=== PATIENT | female | born 1940 | race Caucasian/White ===

== ENCOUNTER → 2019-06-04 | Outpatient (REF) | payer OTHER ==
[~2019-06-04] MED LIST: ACET-897 PO; ACET20%4ML INH; ANTI2TAB17 PO; BACITAB PO; DOXY-350 PO; EASY-106 XX; FERR1TAB8 PO; FERR325T3 PO; FURO40TA2 PO; HYDR-3910 PO; K-TA10TA2 PO; LOSA50TA88 PO; MULT1TAB8 PO; NEBUKIT5 XX; OFEV1CAP PO; OMEP-218 PO; OMEP20CA4 PO; PLAV1TAB2 PO; POTA10CA32 PO; POTA20TA6 PO; PRAV40TA2 PO; PRED20TA PO; SYNT50TA PO; TRAM50TA2 PO; VITA1CAP25 PO; VITACHTA PO
[2019-06-04 18:54] LABS: BASO % 0.1 % (0.0-1.0); EOS # 0.3 10^3/uL (0.0-0.50); EOS % 2.9 % (0.0-3.0); HEMATOCRIT 36.3 % (36.0-47.0); HEMOGLOBIN 11.6 g/dl (12.0-15.5); LYMPH # 0.9 10^3/uL (1.5-4.5); LYMPH % 8.8 % (24.0-44.0); MEAN CORPUSCULAR HEMOGLOBIN 30.7 pg (27.0-33.0); MONO # 0.8 10^3/uL (0.0-0.8); MONO % 7.7 % (0.0-5.0); NEUTROPHILS # 8.2 10^3/uL (1.8-7.7); NEUTROPHILS % 80.1 % (36.0-66.0); PLATELET COUNT, AUTOMATED 190 10^3/uL (150-450); RED BLOOD COUNT 3.78 10^6/uL (4.00-5.40); WHITE BLOOD COUNT 10.3 10^3/uL (4.0-10.0)
[2019-06-04 19:13] LABS: ALBUMIN 2.8 GM/DL (3.2-5.2); BILIRUBIN,TOTAL 0.4 MG/DL (0.2-1.0); CALCIUM LEVEL 8.3 MG/DL (8.8-10.2); CREATININE FOR GFR 1.3 MG/DL (0.55-1.30); POTASSIUM SERUM 4.1 MEQ/L (3.5-5.1); TOTAL PROTEIN 6.3 GM/DL (6.4-8.2)
== END ==
LOC: M LAB REF 17:17
PROVIDERS: ATTEND Internal Medicine Pulmonary Disease
DX: J84.112 Idiopathic pulmonary fibrosis (principal); Z79.899 Other long term (current) drug therapy

== ENCOUNTER 2019-06-06 00:11 | Emergency (ER) | payer OTHER ==
[~2019-06-06] VITALS: Ht 157.5 cm; Wt 64.5 kg
[~2019-06-06 00:11] MED LIST changes: -K-TA10TA2 PO
[2019-06-06] MEDS ORDERED: K-TA10TA2 PO (00:44)
[2019-06-06] MEDS ORDERED: FUROSEMIDE 100 MG/10 ML VIAL (J1940) IV ONE (01:00)
[2019-06-06] MEDS ORDERED: dexameTHASONE 20 MG/5 ML VIAL (J1100) IV ONE (01:00)
[2019-06-06 01:02] LABS: BASO % 0.1 % (0.0-1.0); EOS # 0.1 10^3/uL (0.0-0.50); EOS % 0.7 % (0.0-3.0); HEMATOCRIT 30.7 % (36.0-47.0); HEMOGLOBIN 9.9 g/dl (12.0-15.5); LYMPH # 0.9 10^3/uL (1.5-4.5); LYMPH % 8.2 % (24.0-44.0); MEAN CORPUSCULAR HGB CONC 32.2 g/dl (32.0-36.5); MEAN CORPUSCULAR VOLUME 96.2 fl (80.0-96.0); MONO # 0.8 10^3/uL (0.0-0.8); MONO % 7.2 % (0.0-5.0); NEUTROPHILS # 9.3 10^3/uL (1.8-7.7); NEUTROPHILS % 83.4 % (36.0-66.0); PLATELET COUNT, AUTOMATED 162 10^3/uL (150-450); RED BLOOD COUNT 3.19 10^6/uL (4.00-5.40); WHITE BLOOD COUNT 11.2 10^3/uL (4.0-10.0)
[2019-06-06 01:26] LABS: INR 1.07; PROTHROMBIN TIME 13.6 SECONDS (11.8-14.0)
[2019-06-06 01:27] LABS: CALCIUM LEVEL 8.1 MG/DL (8.8-10.2); CREATININE FOR GFR 1.24 MG/DL (0.55-1.30); GLOMERULAR FILTRATION RATE 44.3 (>32); MB/CK RELATIVE INDEX 4.35 (< OR =4); PARTIAL THROMBOPLASTIN TIME 33.6 SECONDS (25.0-38.4); POTASSIUM SERUM 3.7 MEQ/L (3.5-5.1); TROPONIN I 0.5 NG/ML (< 0.10)
[2019-06-06] MEDS ORDERED: CLOPIDOGREL 75 MG TAB PO STA (01:30)
[2019-06-06] MEDS ORDERED: ASPIRIN 325 MG TAB PO ONE (01:30)
[2019-06-06] MEDS ORDERED: ISOVUE-370 76% 100ML VIAL (Q9967) As Ordered ONE (01:37)
--- NOTE | 2019-06-06 01:56 | REPVR ---
EXAM: US Duplex Left Lower Extremity Veins, Limited EXAM DATE/TIME: 06/06/2019 1:32 AM CLINICAL HISTORY: 78 years old, female; Pain; Leg, upper and leg, lower; Left; Additional info: Pain/swell TECHNIQUE: Imaging protocol: Real-time Duplex ultrasound of the Left Lower Extremity with 2-D betts scale, color Doppler flow and spectral waveform analysis with image documentation. Limited exam focused on the left lower extremity veins. COMPARISON: US Duplex, Ext LOWER veins, bilat 05/06/2019 9:23 PM FINDINGS: Left deep veins: Unremarkable. The common femoral, femoral and popliteal veins are patent without thrombus. Normal compressibility, augmentation response and Doppler waveforms. Left superficial veins: Unremarkable. Saphenofemoral junction is patent without thrombus. Soft tissues: Unremarkable. IMPRESSION: No sonographic evidence of deep vein thrombosis. Electronically signed by: Carlitos Razo On 06/06/2019 01:55:41 AM
--- NOTE | 2019-06-06 02:00 | REPVR ---
EXAM: CT Angiography Chest With Contrast EXAM DATE/TIME: 06/06/2019 1:31 AM CLINICAL HISTORY: 78 years old, female; Dyspnea; Additional info: Dysp TECHNIQUE: Imaging protocol: Axial computed tomographic angiography images of the chest with intravenous contrast using CT angiography protocol. 3D rendering: MIP reconstructed images were created and reviewed. Radiation optimization: All CT scans at this facility use at least one of these dose optimization techniques: automated exposure control; mA and/or kV adjustment per patient size (includes targeted exams where dose is matched to clinical indication); or iterative reconstruction. Contrast material: ISO; Contrast volume: 75 ml; Contrast route: AC; COMPARISON: CT ANGIO CHEST 05/06/2019 10:07 PM FINDINGS: Pulmonary arteries: Dilatation of the main pulmonary artery segment, suggesting pulmonary hypertension. Aorta: Mild atherosclerotic disease. No aneurysm or dissection. Lungs: Extensive fibrotic changes with associated bronchiectasis. Superimposed groundglass infiltrates. No focal consolidation. Mild pulmonary vascular congestion. Pleural space: Small left pleural effusion. No pneumothorax. Heart: Mild cardiomegaly. No pericardial effusion. Mediastinum: Large hiatal hernia. Gallbladder and bile ducts: Status post cholecystectomy. No biliary ductal dilatation. Lymph nodes: No pathologically enlarged lymph nodes. Bones/joints: No acute osseous abnormality. Osteopenia. Degenerative changes. Soft tissues: Unremarkable. IMPRESSION: 1. No CT evidence of pulmonary embolism. 2. Cardiomegaly and mild pulmonary vascular congestion. 3. Dilatation of the main pulmonary artery segment, suggesting pulmonary hypertension. 4. Extensive fibrotic changes with associated bronchiectasis with new superimposed nonspecific groundglass infiltrates. Findings may be secondary to edema or nonspecific pneumonitis. Infection cannot be excluded. 5. Small left pleural effusion. 6. Large hiatal hernia. 7. Additional findings, as above. Electronically signed by: Carlitos Razo On 06/06/2019 02:00:19 AM
[2019-06-06] MEDS ORDERED: HEPARIN DRIP 25,000 UNITS in APPROPRIATE DILUENT 1 EA IV SCH (02:45)
[2019-06-06] MEDS ORDERED: HEPARIN SOD (PORCINE) 5000 UNITS/ML VIAL IV ONE (02:45)
[2019-06-06 03:29] VITALS: BP 132/63
--- NOTE | 2019-06-06 05:37 | ECGEPIP ---
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
== END 2019-06-06 03:31 | disposition short-term general hospital (02) ==
LOC: M ED 00:11
DX: I21.4 Non-ST elevation (NSTEMI) myocardial infarction (principal); E78.5 Hyperlipidemia, unspecified; K21.9 Gastro-esophageal reflux disease without esophagitis; D50.9 Iron deficiency anemia, unspecified; I51.9 Heart disease, unspecified; J84.10 Pulmonary fibrosis, unspecified; I51.7 Cardiomegaly; J44.9 Chronic obstructive pulmonary disease, unspecified; Z79.82 Long term (current) use of aspirin; Z79.84 Long term (current) use of oral hypoglycemic drugs; Z79.899 Other long term (current) drug therapy; Z88.0 Allergy status to penicillin; Z88.2 Allergy status to sulfonamides
CPT/HCPCS: 71275; 80048; 82550; 82553; 83605; 83880; 84484; 85025; 85610; 85730; 87040; 93005; 93971; 96374; 99285; J1100; J1940; Q9967

== ENCOUNTER 2019-06-26 17:45 | Inpatient (IN) | payer OTHER ==
[~2019-06-26] VITALS: Ht 157.5 cm; Wt 61.2 kg
[~2019-06-26 17:45] MED LIST changes: +K-TA10TA2 PO
[2019-06-26] MEDS ORDERED: LOPE2CAP PO (18:37)
[2019-06-26] MEDS ORDERED: FLON1SPR NARES (18:37)
[2019-06-26] MEDS ORDERED: ASPI81TA85 PO (18:37)
[2019-06-26 18:38] LABS: BASO % 0.2 % (0.0-1.0); EOS # 0.2 10^3/uL (0.0-0.5); HEMATOCRIT 39.8 % (36.0-47.0); HEMOGLOBIN 12.9 g/dl (12.0-15.5); LYMPH # 1.3 10^3/uL (1.5-5.0); LYMPH % 11.5 % (24.0-44.0); MEAN CORPUSCULAR HEMOGLOBIN 31.5 pg (27.0-33.0); MEAN CORPUSCULAR HGB CONC 32.4 g/dl (32.0-36.5); MEAN CORPUSCULAR VOLUME 97.1 fl (80.0-96.0); MONO # 0.8 10^3/uL (0.0-0.8); MONO % 7.3 % (0.0-5.0); NEUTROPHILS # 8.8 10^3/uL (1.5-8.5); PLATELET COUNT, AUTOMATED 173 10^3/uL (150-450); WHITE BLOOD COUNT 11.3 10^3/uL (4.0-10.0)
[2019-06-26 18:39] LABS: VENOUS BASE EXCESS 12.1 (-2.0-2.0); VENOUS O2 SATURATION 94.1 % (60.0-80.0); VENOUS PARTIAL PRESSURE O2 67.3 mmHg (30.0-50.0); VENOUS PH 7.465 UNITS (7.330-7.430); VENOUS STANDARD HCO3 35.8 MEQ/L; VENOUS TOTAL CO2 39.6 MEQ/L (24.0-28.0)
[2019-06-26 18:46] LABS: INR 0.98; PROTHROMBIN TIME 12.7 SECONDS (11.8-14.0)
[2019-06-26] MEDS ORDERED: ASPIRIN 81 MG CHEW TABLET PO ONE (19:15)
[2019-06-26] MEDS ORDERED: IPRATROPIUM 0.5MG/ALBUTEROL 2.5MG INH SOL UD 3ML (DUONEB)(J7620) NEB PRN (19:15)
[2019-06-26 19:20] LABS: ALBUMIN 2.8 GM/DL (3.2-5.2); ALT/SGPT 23 U/L (12-78); BILIRUBIN,DIRECT 0.2 MG/DL (0.0-0.2); BILIRUBIN,TOTAL 0.6 MG/DL (0.2-1.0); BLOOD UREA NITROGEN 21 MG/DL (7-18); CALCIUM LEVEL 8.8 MG/DL (8.8-10.2); CARBON DIOXIDE LEVEL 37 MEQ/L (21-32); CHLORIDE LEVEL 95 MEQ/L (98-107); CK-MB VALUE MASS 3.6 NG/ML (<3.6); CPK CREATINE PHOSPHOKINASE 39 U/L (26-192); CREATININE FOR GFR 0.85 MG/DL (0.55-1.30); GLOMERULAR FILTRATION RATE > 60.0 (>32); GLUCOSE, FASTING 170 MG/DL (70-100); MB/CK RELATIVE INDEX 9.23 (< OR =4); NT-PRO BNP 1148 PG/ML (<450); POTASSIUM SERUM 3.4 MEQ/L (3.5-5.1); SODIUM LEVEL 141 MEQ/L (136-145); TOTAL PROTEIN 6.4 GM/DL (6.4-8.2)
--- NOTE | 2019-06-26 19:26 | REP ---
Portable chest x-ray: Single view. History: Dyspnea and cough. Comparison study: May 08, 2019. Findings: There is evidence of a large hiatal hernia behind the heart. The heart is not enlarged. Chronic interstitial fibrosis is seen, moderate to marked in degree. Today's view is exposed at a lower level of inspiration. Allowing for this difference, the interstitial fibrosis pattern is felt to be unchanged from May 06, 2019 and May 08, 2019 prior studies. No definite acute infiltrate. Impression: Large hiatal hernia. Advanced interstitial fibrosis pattern in the lung plascencia. Clips in the right upper quadrant. No definite acute infiltrate. Electronically Signed by Irving Monte MD 06/26/2019 07:29 P
[2019-06-26] MEDS ORDERED: FUROSEMIDE 20 MG/2 ML VIAL (J1940) IV ONE (20:00)
[2019-06-26] MEDS: HumaLOG INSULIN (NovoLOG) PER UNIT SC SCH (21:00)
[2019-06-26] MEDS ORDERED: POTA20TA6 PO (21:45)
[2019-06-26] MEDS ORDERED: [UNRECOGNIZED DRUG - CODE] IH (21:45)
--- NOTE | 2019-06-26 21:49 | HPEPDOC ---
General Date of Admission Jun 26, 2019 at 17:46 Date of Service: Jun 26, 2019 Chief Complaint The patient is a 78-year-old female admitted with a reason for visit of Chf/Hypoxia/Pulmonary Fibrosis. Source: Patient, Family Exam Limitations: No limitations Timing/Duration: Day(s) (2) Severity: Mild History of Present Illness Pt is a 78 yo female with PMH of CKD, idopathic pulm fibrosis, CAD, and OA who presented to [facility] ER due to 2 days of dyspnea, increased orthopnea, increased b/l leg edema, and bilateral LE leg pain. He pulse ox decreased fro m98% to 78% during walking, and dyspnea worsens with walking. Also reported increasing dry- cough. She reported she has been having decreased urination as well; denies any diet/fluid intake change. Pt had echo 04/2019 which showed diastolic dysfunction grade 1. It was noted that from 06/06 to 06/11 pt was hospitalized in [place] for dyspnea and was later discharged home with steroid pack taper. She usually follows pulm at [facility], and per report when he called today, the nursing staff told him the pt needed to be on oxygen 3-8L. Pt has been requiring gradually increasing oxygen, and since 06/06/19 she has been requiring 4.5L. Denies any fever, chills, chest pain, palpitation, abd pain, constipation, diarrhea, or blood in stool Home Medications Scheduled Acetylcysteine (Acetylcysteine) 200 Mg/1 Ml Vial, 400 MG IH RBID, (Reported) MIX WITH VIAL OF ALBUTEROL Albuterol Sulf (Albuterol Sulfate) 2.5 Mg/3 Ml Vial.neb, 1 VIAL INH BID, (Reported) TO BE MIXED WITH ACETYLCYSTEINE Aspirin (Aspir 81) 81 Mg Tablet.dr, 81 MG PO DAILY, (Reported) Ferrous Sulfate (Ferrous Sulfate) 325 Mg Tablet, 325 MG PO 2XWK, (Reported) SUNDAY AND SUNDAY Fluticasone Propionate (Flonase Allergy Relief) 9.9 Ml Ideal.susp, 2 SPRAY NARES DAILY, (Reported) Furosemide (Furosemide) 40 Mg Tablet, 40 MG PO DAILY, (Reported) Hydralazine HCl (Hydralazine HCl) 25 Mg Tablet, 25 MG PO BID, (Reported) Levothyroxine Sodium (Synthroid) 50 Mcg Tablet, 50 MCG PO DAILY, (Reported) Nintedanib Esylate (Ofev) 100 Mg Capsule, 100 MG PO BID, (Reported) SECOND DOSE AT DINNERTIME Omeprazole (Omeprazole) 20 Mg Capsule.dr, 20 MG PO DAILY, (Reported) Potassium Chloride (Potassium Chloride) 20 Meq Tab.er.prt, 20 MEQ PO TID, (Reported) Pravastatin Sodium (Pravastatin Sodium) 40 Mg Tablet, 40 MG PO QHS, (Reported) Scheduled PRN Acetaminophen (Tylenol Extra Strength) 500 Mg Tablet, 1,000 MG PO Q8H PRN for PAIN, (Reported) Loperamide HCl (Loperamide) 2 Mg Capsule, 4 MG PO Q6H PRN for DIARRHEA, (Reported) Allergies Coded Allergies: Penicillins (Verified Allergy, Severe, PASSED OUT/CONVULSIONS, 05/06/19) Sulfa (Sulfonamide Antibiotics) (Verified Allergy, Intermediate, HIVES, 05/06/19) Past Medical History Medical History HTN CAD Hyperlipidemia Idiopathic pulmonary fibrosis CKD Right knee replacement Htsterectomy OA Hyperthyroidism Family History Mother-RA No family hx of interstitial lung dz Social History * Smoker: former Smoker A-FIB/CHADSVASC A-FIB History Current/History of A-Fib/PAF?: No Review of Systems Constitutional: Reports: Weakness; Denies: Chills, Fever Pulmonary: Reports: Dyspnea, Cough Cardiovascular: Reports: Orthopnea, Paroxysmal Noc. Dyspnea, Edema; Denies: Chest Pain, Palpitations Gastrointestinal: Denies: Nausea, Vomiting, Abdominal Pain, Diarrhea, Constipa tion, Hematochezia Musculoskeletal: Reports: Other Symptoms (B/l hip pain reported to be due to excessive outpt PT) Physical Examination General Exam: Positive: Alert, Cooperative, No Acute Distress Eye Exam: Positive: Conjunctiva & lids normal; Negative: Sclera icteric ENT Exam: Positive: Mucous membr. moist/pink Neck Exam: Positive: Supple Chest Exam: Positive: Clear to auscultation, Normal air movement; Negative: Rales, Rhonchi, Wheezing Heart Exam: Positive: Rate Normal, Regular Rhythm, Normal S1, Normal S2; Negative: Murmurs Abdomen Exam: Positive: Normal bowel sounds, Soft; Negative: Tenderness Extremity Exam: Positive: Edema (B/l pitting edema), Normal pulses, Tenderness (b/l LE) Psych Exam: Positive: Mental status NL, Mood NL, Memory Intact, Oriented x 3; Negative: Anxiety Vital Signs Vital Signs Date Time Temp Pulse Resp B/P (MAP) Pulse Ox O2 Delivery O2 Flow Rate FiO2 06/26/19 20:45 97 20 149/85 (106) 99 Nasal Cannula 6.0 06/26/19 19:40 97.8 Laboratory Data Labs 24H Laboratory Tests 2 06/26/19 18:16: Immature Granulocyte % (Auto) 1.0, White Blood Count 11.3H, Red Blood Count 4.10, Hemoglobin 12.9, Hematocrit 39.8, Mean Corpuscular Volume 97.1H, Mean Corpuscular Hemoglobin 31.5, Mean Corpuscular Hemoglobin Concent 32.4, Red Cell Distribution Width 14.4, Platelet Count 173, Neutrophils (%) (Auto) 78.0H, Lymphocytes (%) (Auto) 11.5L, Monocytes (%) (Auto) 7.3H, Eosinophils (%) (Auto) 2.0, Basophils (%) (Auto) 0.2, Neutrophils # (Auto) 8.8H, Lymphocytes # (Auto) 1.3L, Monocytes # (Auto) 0.8, Eosinophils # (Auto) 0.2, Basophils # (Auto) 0.0, Nucleated Red Blood Cells % (auto) 0.0, Prothrombin Time 12.7, Prothromb Time International Ratio 0.98, Blood Gas Bicarbonate Standard 35.8, Venous Blood pH 7.465H, Venous Blood Partial Pressure CO2 54.0H, Venous Blood Partial Pressure O2 67.3H, Venous Blood Total Carbon Dioxide 39.6H, Venous Blood HCO3 38.0H, Venous Blood Oxygen Saturation 94.1H, Venous Blood Base Excess 12.1H, Anion Gap 9, Glomerular Filtration Rate > 60.0, Lactic Acid Level 1.3, Calcium Level 8.8, Aspartate Amino Transf (AST/SGOT) 27, Alanine Aminotransferase (ALT/SGPT) 23, Alkaline Phosphatase 66, Total Bilirubin 0.6, Direct Bilirubin 0.2, Total Creatine Kinase 39, Creatine Kinase MB 3.6, Creatine Kinase MB Relative Index 9.23H, Troponin I 0.10, KQ-Jfj-K-Type Natriuretic Peptide 1148H, Total Protein 6.4, Albumin 2.8L, Albumin/Globulin Ratio 0.78L, Thyroid Stimulating Hormone (TSH) 1.990 CBC/BMP Laboratory Tests 06/26/19 18:16 Red Blood Count 4.10, Mean Corpuscular Volume 97.1 H, Mean Corpuscular Hemoglobin 31.5, Mean Corpuscular Hemoglobin Concent 32.4, Red Cell Distribution Width 14.4, Neutrophils (%) (Auto) 78.0 H, Lymphocytes (%) (Auto) 11.5 L, Monocytes (%) (Auto) 7.3 H, Eosinophils (%) (Auto) 2.0, Basophils (%) (Auto) 0.2, Neutrophils # (Auto) 8.8 H, Lymphocytes # (Auto) 1.3 L, Monocytes # (Auto) 0.8, Eosinophils # (Auto) 0.2, Basophils # (Auto) 0.0 Microbiology Microbiology 06/26/19 Blood Culture, Received Pending Assessment/Plan 1. CHF exacerbation, with grade 1 diastolic dysfunction -Hold home Lasix dose; start Lasix IV 40mg as scheduled -I&O, daily weights -No added Na diet 2. Idiopathic pulm fibrosis -Cont home med Ofev and INH NAC -CXR showed fibrosis pattern 3. HTN -Cont home med; pt also will have lasix added. Hydralazine IV PRN with holding parameters -BP 149/85 most recent in ER -vital signs as scheduled 4. CAD -Cont home med statin 5. Hyperlipidemia -Cont home med statin 6. CKD -no KIMBERLY -Cont to f/u with BMP 7. Hyperglycemia, without DM hx -likely 2/2 recent use of po steroid -start insulin sliding scale with POC AC&HS 8. Hypothyroidism -PMH of hyperthyroidism listed however pt on synthroid at home -cont home synthroid 9. Hypokalemia -K 3.4; 40 meq repleted Recheck BMP tmrw morning, Mg level Diet: No added Na diet DVT prophylaxis: SCD, TEDS, and heparin IAttila, have independently examined this patient and performed my own physical exam, as well as reviewed the documentation and edited where necessary. I have discussed in detail with the resident / student the findings and plan of treatment as documented by the resident / student and edited their note. I agree with their findings and treatment plan and have edited their documentation. I will continue to follow the patient during this hospital stay. Plan / VTE VTE Prophylaxis Ordered?: Yes JEANCARLOS MARRERO DO Jun 26, 2019 21:49 ATTILA HEBERT DO Jun 26, 2019 22:50
[2019-06-26] MEDS ORDERED: ALBU83IN INH (21:52)
[2019-06-26] MEDS ORDERED: hydrALAZINE INJ 20 MG/ML VIAL IV PRN (22:00)
[2019-06-26 22:40] VITALS: BP 137/79
[2019-06-26] MEDS ORDERED: DEXTROSE 50% 50 ML SYRINGE IV PRN (23:00)
[2019-06-26] MEDS ORDERED: GLUCOSE 4 GM CHEW TABLET PO PRN (23:00)
[2019-06-26] MEDS ORDERED: GLUCAGON FOR INJ 1 MG VIAL (J1610) SC PRN (23:00)
[2019-06-27] VITALS (7 sets, daily range): BP systolic 124–137; BP diastolic 74–89; O2SAT 92–98
[2019-06-27] MEDS: FUROSEMIDE 40 MG/4 ML VIAL (J1940) IV SCH ×4 (00:30→17:59)
[2019-06-27] MEDS: POTASSIUM CHLORIDE 10 MEQ SR TABLET PO SCH ×4 (00:31→22:18)
[2019-06-27] MEDS: HEPARIN SOD (PORCINE) 5000 UNITS/ML VIAL SC SCH ×3 (00:31→22:18)
[2019-06-27] MEDS: NINTEDANIB ESYLATE 100 MG PO SCH ×3 (02:18→18:18)
[2019-06-27] MEDS: LEVOTHYROXINE 50MCG TABLET (0.05MG) PO SCH (05:37)
[2019-06-27 06:34] LABS: HEMATOCRIT 39.7 % (36.0-47.0); HEMOGLOBIN 12.6 g/dl (12.0-15.5); MEAN CORPUSCULAR HGB CONC 31.7 g/dl (32.0-36.5); MEAN CORPUSCULAR VOLUME 94.5 fl (80.0-96.0); PLATELET COUNT, AUTOMATED 177 10^3/uL (150-450); WHITE BLOOD COUNT 13.3 10^3/uL (4.0-10.0)
[2019-06-27 06:47] LABS: BLOOD UREA NITROGEN 18 MG/DL (7-18); CALCIUM LEVEL 8.9 MG/DL (8.8-10.2); CARBON DIOXIDE LEVEL 39 MEQ/L (21-32); CHLORIDE LEVEL 95 MEQ/L (98-107); CREATININE FOR GFR 0.79 MG/DL (0.55-1.30); GLOMERULAR FILTRATION RATE > 60.0 (>32); GLUCOSE, FASTING 142 MG/DL (70-100); MAGNESIUM LEVEL 1.7 MG/DL (1.8-2.4); POTASSIUM SERUM 2.9 MEQ/L (3.5-5.1); SODIUM LEVEL 140 MEQ/L (136-145)
[2019-06-27] MEDS ORDERED: POTASSIUM CHLORIDE 10 MEQ SR TABLET PO ONE ×2 (07:00→12:45)
[2019-06-27] MEDS: ASPIRIN 81 MG ENTERIC TAB PO SCH (07:54)
[2019-06-27] MEDS: FLUTICASONE PROP 0.05% NASAL SPRAY 16 GM (FLONASE) NARES SCH (07:55)
[2019-06-27] MEDS: **hydrALAZINE HCL** 25 MG TAB PO SCH ×2 (07:57→22:19)
[2019-06-27] MEDS: OMEPRAZOLE 20 MG CAP PO SCH (07:57)
[2019-06-27] MEDS: HumaLOG INSULIN (NovoLOG) PER UNIT SC SCH ×4 (07:58→21:00)
[2019-06-27] MEDS: ACETYLCYSTEINE 20% 4 ML VIAL (200MG/ML) INH SCH ×2 (08:00→20:21)
[2019-06-27] MEDS: ALBUTEROL SULFATE 2.5 MG/0.5 ML INH NEB SOLN NEB SCH ×2 (08:05→20:21)
[2019-06-27] MEDS ORDERED: POTASSIUM CHLORIDE 10 MEQ SR TABLET PO SCH (09:00)
[2019-06-27] MEDS: MAGNESIUM OXIDE 400 MG TAB (MAG-OX) PO SCH (13:27)
--- NOTE | 2019-06-27 15:52 | IPNPDOC ---
Text Note Date of Service The patient was seen on 06/27/19. NOTE SUBJECTIVE: Ms. Madsen is comfortable in a chair at bedside. She states she is uncomfortable with any exertion. Patient is admitted with acute on chronic hypoxic respiratory failure. Patient has underlying idiopathic pulmonary fibrosis. OBJECTIVE: HENT: Neck is supple, no adenopathy or thyromegaly, moist oral mucosa, mild facial pallor. Cardiovascular: Irregular rhythm, no appreciable murmur. Pulmonary: Patient has greatly diminished air movement Abdomen: Soft, nontender, nondistended. Extremities: No peripheral edema or lesions, pedal pulses are palpable, legs are elevated in chair, however. ASSESSMENT/PLAN: 1. Acute respiratory failure with hypoxia due to idiopathic pulmonary fibrosis. Patient was admitted requiring a nonrebreather mask and desaturations down into the 60s. Apparently she had been off of her oxygen for a period of time. The patient has been diagnosed with this for just over 4 years. She is usually followed at [facility]. Generally she requires anywhere from 5 - 8 LPM. Remains on her current steroids and nebulization treatments. 2. Chronic diastolic congestive heart failure. I do not appreciate clinical signs of acute fluid overload at this time She does not have peripheral edema and does not have remarkable interstitial infiltrate on her chest x-ray. We'll de-escalate her diuresis regimen. 3. Disposition. The patient resides in [place]. Patient came to this area by motor home. She is unclear that it will be able to sufficiently power her oxygen equipment to provide her with 8 L/m should she need it. She will also need to run air-conditioning concurrently. She has multiple pertinent questions. If she brings O2 tanks she is unclear of how many she is allowed to have in the motor home. 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 She is also wondering if [employer] would be available as a transport alternative. We can discuss all of this with discharge planning. The patient is aware that her disease is progressive and worsening. She had been given a prognosis of 5 years from the time of diagnosis. She has not yet made any decisions regarding CODE STATUS. VS,Fishbone, I+O VS, Fishbone, I+O Laboratory Tests 06/26/19 18:16 Red Blood Count 4.10, Mean Corpuscular Volume 97.1 H, Mean Corpuscular Hemoglobin 31.5, Mean Corpuscular Hemoglobin Concent 32.4, Red Cell Distribution Width 14.4, Neutrophils (%) (Auto) 78.0 H, Lymphocytes (%) (Auto) 11.5 L, Monocytes (%) (Auto) 7.3 H, Eosinophils (%) (Auto) 2.0, Basophils (%) (Auto) 0.2, Neutrophils # (Auto) 8.8 H, Lymphocytes # (Auto) 1.3 L, Monocytes # (Auto) 0.8, Eosinophils # (Auto) 0.2, Basophils # (Auto) 0.0 06/27/19 05:32 Red Blood Count 4.20, Mean Corpuscular Volume 94.5, Mean Corpuscular Hemoglobin 30.0, Mean Corpuscular Hemoglobin Concent 31.7 L, Red Cell Distribution Width 14.6 H, Calcium Level 8.9 Vital Signs Date Time Temp Pulse Resp B/P (MAP) Pulse Ox O2 Delivery O2 Flow Rate FiO2 06/27/19 07:57 126/74 06/27/19 06:05 92 Nasal Cannula 4.0 06/27/19 06:00 99.0 94 24 I&O- Last 24 Hours up to 6 AM 06/27/19 06:00 Intake Total 300 ml Output Total 425 ml Balance -125 ml THOR HEARN MD Jun 27, 2019 15:51
[2019-06-27] MEDS: PRAVASTATIN 20 MG TAB PO SCH (22:18)
--- NOTE | 2019-06-28 05:41 | ECGEPIP ---
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
[2019-06-28 06:00] VITALS: BP 119/77
[2019-06-28] MEDS: LEVOTHYROXINE 50MCG TABLET (0.05MG) PO SCH (06:08)
[2019-06-28 06:29] LABS: HEMATOCRIT 38.4 % (36.0-47.0); HEMOGLOBIN 12.1 g/dl (12.0-15.5); MEAN CORPUSCULAR HEMOGLOBIN 30.8 pg (27.0-33.0); MEAN CORPUSCULAR HGB CONC 31.5 g/dl (32.0-36.5); MEAN CORPUSCULAR VOLUME 97.7 fl (80.0-96.0); PLATELET COUNT, AUTOMATED 170 10^3/uL (150-450); RED BLOOD COUNT 3.93 10^6/uL (4.00-5.40); WHITE BLOOD COUNT 10.9 10^3/uL (4.0-10.0)
[2019-06-28 06:51] LABS: CREATININE FOR GFR 0.99 MG/DL (0.55-1.30); GLOMERULAR FILTRATION RATE 57.5 (>32); MAGNESIUM LEVEL 1.8 MG/DL (1.8-2.4); POTASSIUM SERUM 4.3 MEQ/L (3.5-5.1)
[2019-06-28] MEDS: ALBUTEROL SULFATE 2.5 MG/0.5 ML INH NEB SOLN NEB SCH ×2 (08:01→19:36)
[2019-06-28] MEDS: ACETYLCYSTEINE 20% 4 ML VIAL (200MG/ML) INH SCH ×2 (08:01→19:36)
[2019-06-28 09:00] VITALS: O2SAT 99
[2019-06-28] MEDS: HEPARIN SOD (PORCINE) 5000 UNITS/ML VIAL SC SCH ×2 (09:35→20:54)
[2019-06-28] MEDS: FLUTICASONE PROP 0.05% NASAL SPRAY 16 GM (FLONASE) NARES SCH (09:35)
[2019-06-28] MEDS: FUROSEMIDE 40 MG/4 ML VIAL (J1940) IV SCH ×2 (09:35→16:43)
[2019-06-28] MEDS: HumaLOG INSULIN (NovoLOG) PER UNIT SC SCH ×4 (09:35→20:45)
[2019-06-28] MEDS: OMEPRAZOLE 20 MG CAP PO SCH (09:36)
[2019-06-28] MEDS: ASPIRIN 81 MG ENTERIC TAB PO SCH (09:36)
[2019-06-28] MEDS: MAGNESIUM OXIDE 400 MG TAB (MAG-OX) PO SCH (09:36)
[2019-06-28] MEDS: **hydrALAZINE HCL** 25 MG TAB PO SCH ×2 (09:36→20:53)
[2019-06-28] MEDS: POTASSIUM CHLORIDE 10 MEQ SR TABLET PO SCH ×3 (09:36→20:52)
[2019-06-28] MEDS: NINTEDANIB ESYLATE 100 MG PO SCH ×2 (09:37→16:45)
[2019-06-28 14:00] VITALS: BP 128/76
--- NOTE | 2019-06-28 15:44 | IPNPDOC ---
Text Note Date of Service The patient was seen on 06/28/19. NOTE SUBJECTIVE: Ms. Madsen remains comfortable in a chair at bedside. She was admitted with acute on chronic hypoxic respiratory failure due to idiopathic pulmonary fibrosis. The patient appears to have contracted an upper respiratory infection that has exacerbated her condition. She is currently making use of 4-5 LPM. OBJECTIVE: HENT: Neck is supple, no adenopathy or thyromegaly, moist oral mucosa, mild facial pallor. Cardiovascular: Irregular rhythm, no appreciable murmur. Pulmonary: Patient has greatly diminished air movement, but is not in visible distress. Abdomen: Soft, nontender, nondistended. Extremities: No peripheral edema or lesions, pedal pulses are palpable, legs are elevated in chair, however. 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 Acute respiratory failure with hypoxia due to idiopathic pulmonary fibrosis. Patient was admitted requiring a nonrebreather mask and desaturations down into the 60s. Apparently she had been off of her oxygen for a period of time. The patient has been diagnosed with this for just over 4 years. She is usually followed at [facility]. Generally she requires anywhere from 5 - 8 LPM. Remains on her current nebulization treatments. 2. Chronic diastolic congestive heart failure. I do not appreciate clinical signs of acute fluid overload at this time She does not have peripheral edema and does not have remarkable interstitial infiltrate on her chest x-ray. We'll continue to monitor her closely however. 3. Overall, the patient appears to be at baseline. We will need to discuss how she is to get home. She resides in [place] and travels by motor home. The patient is aware that her disease is progressive and worsening. She apparently has been reviewing the MOLST form. We have reviewed it together in detail and she has made herself DNR/DNI. VS,Heathere, I+O VS, Heathere, I+O Laboratory Tests 06/28/19 05:24 Red Blood Count 3.93 L, Mean Corpuscular Volume 97.7 H, Mean Corpuscular Hemoglobin 30.8, Mean Corpuscular Hemoglobin Concent 31.5 L, Red Cell Distribution Width 14.6 H, Calcium Level 9.0 Vital Signs Date Time Temp Pulse Resp B/P (MAP) Pulse Ox O2 Delivery O2 Flow Rate FiO2 06/28/19 14:00 97.4 104 23 128/76 (93) 98 4.0 06/28/19 09:00 Nasal Cannula I&O- Last 24 Hours up to 6 AM 06/28/19 05:59 Intake Total 850 ml Output Total 726 ml Balance 124 ml THOR HEARN MD Jun 28, 2019 15:43
[2019-06-28 20:37] VITALS: O2SAT 99
[2019-06-28] MEDS: PRAVASTATIN 20 MG TAB PO SCH (20:53)
[2019-06-28 22:00] VITALS: BP 131/76
[2019-06-29] MEDS: LEVOTHYROXINE 50MCG TABLET (0.05MG) PO SCH (05:48)
[2019-06-29 05:53] LABS: HEMATOCRIT 36.9 % (36.0-47.0); HEMOGLOBIN 11.7 g/dl (12.0-15.5); MEAN CORPUSCULAR HGB CONC 31.7 g/dl (32.0-36.5); MEAN CORPUSCULAR VOLUME 97.6 fl (80.0-96.0); PLATELET COUNT, AUTOMATED 170 10^3/uL (150-450); RED BLOOD COUNT 3.78 10^6/uL (4.00-5.40); WHITE BLOOD COUNT 10.4 10^3/uL (4.0-10.0)
[2019-06-29 06:00] VITALS: BP 131/73
[2019-06-29 06:15] LABS: CALCIUM LEVEL 8.8 MG/DL (8.8-10.2); CREATININE FOR GFR 1.01 MG/DL (0.55-1.30); GLOMERULAR FILTRATION RATE 56.1 (>32); POTASSIUM SERUM 4.3 MEQ/L (3.5-5.1)
[2019-06-29] MEDS: ALBUTEROL SULFATE 2.5 MG/0.5 ML INH NEB SOLN NEB SCH ×2 (07:16→19:40)
[2019-06-29] MEDS: ACETYLCYSTEINE 20% 4 ML VIAL (200MG/ML) INH SCH ×2 (07:16→19:40)
[2019-06-29] MEDS: HEPARIN SOD (PORCINE) 5000 UNITS/ML VIAL SC SCH ×2 (08:15→21:47)
[2019-06-29] MEDS: FUROSEMIDE 40 MG/4 ML VIAL (J1940) IV SCH ×2 (08:15→16:42)
[2019-06-29] MEDS: MAGNESIUM OXIDE 400 MG TAB (MAG-OX) PO SCH (08:15)
[2019-06-29] MEDS: OMEPRAZOLE 20 MG CAP PO SCH (08:15)
[2019-06-29] MEDS: POTASSIUM CHLORIDE 10 MEQ SR TABLET PO SCH ×3 (08:15→21:46)
[2019-06-29] MEDS: ASPIRIN 81 MG ENTERIC TAB PO SCH (08:15)
[2019-06-29] MEDS: **hydrALAZINE HCL** 25 MG TAB PO SCH ×2 (08:16→21:46)
[2019-06-29] MEDS: HumaLOG INSULIN (NovoLOG) PER UNIT SC SCH ×4 (08:17→21:00)
[2019-06-29] MEDS: FLUTICASONE PROP 0.05% NASAL SPRAY 16 GM (FLONASE) NARES SCH (08:17)
[2019-06-29] MEDS: NINTEDANIB ESYLATE 100 MG PO SCH ×2 (08:18→16:47)
[2019-06-29 09:00] VITALS: O2SAT 92
[2019-06-29 14:00] VITALS: BP 138/76
--- NOTE | 2019-06-29 17:04 | IPNPDOC ---
Text Note Date of Service The patient was seen on 06/29/19. NOTE SUBJECTIVE: The patient had one of her "spells" where she desats acutely with activity. Her O2 sats got down to 74%. She recovered with FiO2 turned up to 7 LPM. By history she has required up to 8 LPM. The patient has idiopathic pulmonary fibrosis. She attributes her event overexerting herself yesterday; she was apparently out of bed for about 6 hours. OBJECTIVE: General: She is sitting up in bed back on 4.5 LPM. HENT: Neck is supple, no adenopathy or thyromegaly, moist oral mucosa, mild facial pallor. Cardiovascular: Irregular rhythm, no appreciable murmur. Pulmonary: Patient has greatly diminished air movement, but is not in visible distress. Abdomen: Soft, nontender, nondistended. Extremities: No peripheral edema or lesions, pedal pulses are palpable ASSESSMENT/PLAN: 1. Acute respiratory failure with hypoxia due to idiopathic pulmonary fibrosis. Patient continues on nebulization treatments. She has had an episode of desaturation; she has remained within her O2 range of 5-8 LPM. 2. Chronic diastolic congestive heart failure. The patient does not have remarkable peripheral edema. She does not exhibit pulmonary rales on exam. We will continue to monitor. We will need to review. Daily weights. 3. Patient feels she is at baseline as well. However, with these episodes. Concern is raised about how she is to get home. We will discuss this with isrrael cat planning. VS,Fishbone, I+O VS, Fishbone, I+O Laboratory Tests 06/29/19 05:14 Red Blood Count 3.78 L, Mean Corpuscular Volume 97.6 H, Mean Corpuscular Hemoglobin 31.0, Mean Corpuscular Hemoglobin Concent 31.7 L, Red Cell Distribution Width 14.8 H, Calcium Level 8.8 Vital Signs Date Time Temp Pulse Resp B/P (MAP) Pulse Ox O2 Delivery O2 Flow Rate FiO2 06/29/19 14:00 97.7 99 17 138/76 (96) 98 06/29/19 09:00 Nasal Cannula 4.5 I&O- Last 24 Hours up to 6 AM 06/29/19 06:00 Intake Total 990 ml Output Total 1140 ml Balance -150 ml THOR HEARN MD Jun 29, 2019 17:04
[2019-06-29 21:43] VITALS: BP 137/76
[2019-06-29] MEDS: PRAVASTATIN 20 MG TAB PO SCH (21:46)
[2019-06-29] MEDS: ACETAMINOPHEN 500 MG TAB PO PRN (21:47)
[2019-06-29 22:00] VITALS: O2SAT 98
[2019-06-30 06:00] VITALS: BP 134/75
[2019-06-30] MEDS: LEVOTHYROXINE 50MCG TABLET (0.05MG) PO SCH (06:23)
[2019-06-30] MEDS: ACETYLCYSTEINE 20% 4 ML VIAL (200MG/ML) INH SCH ×2 (07:25→20:35)
[2019-06-30] MEDS: ALBUTEROL SULFATE 2.5 MG/0.5 ML INH NEB SOLN NEB SCH ×2 (07:25→20:35)
[2019-06-30] MEDS: HumaLOG INSULIN (NovoLOG) PER UNIT SC SCH ×4 (08:48→20:10)
[2019-06-30] MEDS: MAGNESIUM OXIDE 400 MG TAB (MAG-OX) PO SCH (08:49)
[2019-06-30] MEDS: OMEPRAZOLE 20 MG CAP PO SCH (08:49)
[2019-06-30] MEDS: HEPARIN SOD (PORCINE) 5000 UNITS/ML VIAL SC SCH ×2 (08:49→21:28)
[2019-06-30] MEDS: NINTEDANIB ESYLATE 100 MG PO SCH ×2 (08:50→17:43)
[2019-06-30] MEDS: ASPIRIN 81 MG ENTERIC TAB PO SCH (08:50)
[2019-06-30] MEDS: POTASSIUM CHLORIDE 10 MEQ SR TABLET PO SCH ×3 (08:50→21:29)
[2019-06-30] MEDS: FUROSEMIDE 40 MG/4 ML VIAL (J1940) IV SCH ×2 (08:50→17:42)
[2019-06-30] MEDS: **hydrALAZINE HCL** 25 MG TAB PO SCH ×2 (08:51→21:30)
[2019-06-30] MEDS: FLUTICASONE PROP 0.05% NASAL SPRAY 16 GM (FLONASE) NARES SCH (08:51)
[2019-06-30] MEDS: ACETAMINOPHEN 500 MG TAB PO PRN (09:02)
[2019-06-30] MEDS: LOPERAMIDE 2 MG CAP PO PRN ×2 (09:08→17:43)
[2019-06-30 14:00] VITALS: BP 131/64
[2019-06-30 14:13] VITALS: O2SAT 100
--- NOTE | 2019-06-30 20:42 | IPNPDOC ---
Text Note Date of Service The patient was seen on 06/30/19. NOTE SUBJECTIVE: Ms. Madsen is still not tolerating much physical activity. Her FiO2 has been weaned back down to 4.5 LPM. The patient has idiopathic pulmonary fibrosis. Her usual O2 range is 5-8 LPM. OBJECTIVE: General: She is sitting up in bed back on 4.5 LPM. HENT: Neck is supple, no adenopathy or thyromegaly, moist oral mucosa, mild facial pallor. Cardiovascular: Irregular rhythm, no appreciable murmur. Pulmonary: Patient has greatly diminished air movement, but is not in visible distress. Abdomen: Soft, nontender, nondistended. Extremities: No peripheral edema or lesions, pedal pulses are palpable ASSESSMENT/PLAN: 1. Acute respiratory failure with hypoxia due to idiopathic pulmonary fibrosis. Patient continues on nebulization treatments. She has had an episode of desaturation; she has remained within her O2 range of 5-8 LPM. 2. Chronic diastolic congestive heart failure. The patient does not have remarkable peripheral edema. She does not exhibit pulmonary rales on exam. We will continue to monitor. 3. Patient feels she is at baseline as well. However, with these episodes concern was raised about how she is to get home. The patient has been evaluated by physical therapy services and she is adequately mobile to be able to get into her RV. Consequently, she could be discharged in the next 24-48 hours. Ultimately she plans to go home to [place] when the weather there is cooler. VS,Fishbone, I+O VS, Fishbone, I+O Vital Signs Date Time Temp Pulse Resp B/P (MAP) Pulse Ox O2 Delivery O2 Flow Rate FiO2 06/30/19 18:38 97 4.0 06/30/19 14:13 Nasal Cannula 06/30/19 14:00 99.4 85 18 131/64 (86) I&O- Last 24 Hours up to 6 AM 06/30/19 06:00 Intake Total 780 ml Output Total 300 ml Balance 480 ml THOR HEARN MD Jun 30, 2019 20:42
[2019-06-30] MEDS: PRAVASTATIN 20 MG TAB PO SCH (21:28)
[2019-06-30 21:31] VITALS: BP 137/84
[2019-06-30 22:00] VITALS: BP 131/81
[2019-07-01] VITALS (7 sets, daily range): BP systolic 124–128; BP diastolic 70–82; O2SAT 96–100
[2019-07-01] MEDS: LEVOTHYROXINE 50MCG TABLET (0.05MG) PO SCH (06:38)
[2019-07-01] MEDS: ACETYLCYSTEINE 20% 4 ML VIAL (200MG/ML) INH SCH (07:13)
[2019-07-01] MEDS: ALBUTEROL SULFATE 2.5 MG/0.5 ML INH NEB SOLN NEB SCH (07:14)
[2019-07-01] MEDS: HumaLOG INSULIN (NovoLOG) PER UNIT SC SCH ×2 (08:10→13:15)
[2019-07-01] MEDS: ASPIRIN 81 MG ENTERIC TAB PO SCH (10:09)
[2019-07-01] MEDS: POTASSIUM CHLORIDE 10 MEQ SR TABLET PO SCH (10:10)
[2019-07-01] MEDS: MAGNESIUM OXIDE 400 MG TAB (MAG-OX) PO SCH (10:11)
[2019-07-01] MEDS: OMEPRAZOLE 20 MG CAP PO SCH (10:11)
[2019-07-01] MEDS: **hydrALAZINE HCL** 25 MG TAB PO SCH (10:11)
[2019-07-01] MEDS: FUROSEMIDE 40 MG/4 ML VIAL (J1940) IV SCH (10:13)
[2019-07-01] MEDS: HEPARIN SOD (PORCINE) 5000 UNITS/ML VIAL SC SCH (10:14)
[2019-07-01] MEDS: FLUTICASONE PROP 0.05% NASAL SPRAY 16 GM (FLONASE) NARES SCH (10:15)
[2019-07-01] MEDS: NINTEDANIB ESYLATE 100 MG PO SCH (10:15)
--- NOTE | 2019-07-01 10:22 | IPNPDOC ---
Subjective Date Seen The patient was seen on 07/01/19. Subjective Chief Complaint/HPI Breathing at baseline, not dyspenic at rest or with conversation. Feels weak. No CP, orthopnea, fever, nor chills Events since last encounter none Eyes: Reports: Pain, Vision change; Denies: Conjunctivae inflammation, Eyelid inflammation, Redness, Other Pulmonary: Reports: Dyspnea (at baseline); Denies: Cough, Pleuritic Chest Pain, Other Symptoms Cardiovascular: Denies: Chest Pain, Palpitations, Orthopnea, Paroxysmal Noc. Dyspnea, Edema, Lt Headedness, Other Symptoms Gastrointestinal: Denies: Nausea, Vomiting, Abdominal Pain, Diarrhea, Constipation, Melena, Hematochezia, Other Symptoms Neurological: Denies: Weakness, Numbness, Incoordination, Change in speech, Confusion, Seizures, Other Symptoms Objective Physical Examination General Exam: Positive: Alert, Cooperative, No Acute Distress Eye Exam: Positive: Conjunctiva & lids normal; Negative: Sclera icteric ENT Exam: Positive: Mucous membr. moist/pink Neck Exam: Positive: Supple Chest Exam: Positive: Normal air movement, Other (bilateral dry rales); Negative: Rales, Rhonchi, Wheezing Heart Exam: Positive: Rate Normal, Regular Rhythm, Normal S1, Normal S2; Negative: Murmurs Abdomen Exam: Positive: Normal bowel sounds, Soft; Negative: Tenderness Extremity Exam: Positive: Edema (B/l pitting edema), Normal pulses, Tenderness (b/l LE) Skin Exam: Negative: Nl turgor and temperature, Rash, Breakdown, Lesion, Pruritus, Other skin issue Psych Exam: Positive: Mental status NL, Mood NL, Memory Intact, Oriented x 3; Negative: Anxiety Assessment /Plan Assessment 1. Acute respiratory failure with hypoxia due to chronic idiopathic pulmonary fibrosis with superimposed rhinovirus URI. - clinically improved - medically stable for discharge, home today - resume OFEV, continue home oxygen 5-8 LPM - F/u with PCP in 1 week 2. Chronic diastolic congestive heart failure. - no need for IV lasix, she does not have acute diastolic CHG 3. CKD stage 3 - creat at baseline 4. Diet- controlled DM type 2 - continue with BG check daily at home - f/u with PCP if BG > 180 gm/dl consistently 5. Dispo: Home today with resumption of home oxygen Plan/VTE VTE Prophylaxis Ordered?: Yes VS, I&O, 24H, [place]obonprimo Vital Signs/I&O Vital Signs Date Time Temp Pulse Resp B/P (MAP) Pulse Ox O2 Delivery O2 Flow Rate FiO2 07/01/19 07:39 97.7 86 20 124/70 (88) 95 4.0 07/01/19 01:13 Nasal Cannula I&O- Last 24 Hours up to 6 AM 07/01/19 06:00 Intake Total 1460 ml Output Total 600 ml Balance 860 ml Laboratory Data 24H LABS Laboratory Tests 2 06/30/19 11:24: Bedside Glucose (Misc Panel) 245H 06/30/19 16:42: Bedside Glucose (Misc Panel) 77L 06/30/19 19:55: Bedside Glucose (Misc Panel) 207H 07/01/19 06:03: Bedside Glucose (Misc Panel) 137H Microbiology Microbiology 06/27/19 Blood Culture - Preliminary, Resulted No Growth after 72 hours. All specime... 06/26/19 Blood Culture - Preliminary, Resulted No Growth after 72 hours. All specime... 06/27/19 Respiratory Virus Panel (PCR) ([facility]) - Final, Complete Human Rhinovirus/Enterovirus JENNIFER GOMEZ MD Jul 01, 2019 10:22
[2019-07-01] MEDS ORDERED: FLUBLOK(EGG FREE)(QUAD)INFLUENZA VACC 0.5ML SYRINGE (90682)18YRS&OLDER IM ONE (12:00)
--- NOTE | 2019-07-02 19:14 | DSES ---
DATE OF ADMISSION: 06/27/2019 DATE OF DISCHARGE: 07/01/2019 Primary care provider is not listed. DISCHARGE DIAGNOSES: 1. Acute on chronic hypoxic respiratory failure secondary to upper respiratory viral infection with rhinovirus. 2. Chronic diastolic congestive heart failure with stage 1 diastolic dysfunction. 3. Hypertension. 4. Coronary artery disease. 5. Hyperlipidemia. 6. Chronic kidney disease stage III. 7. Diet-controlled diabetes mellitus type 2. PROCEDURE PERFORMED DURING THIS HOSPITALIZATION: None. CONSULTANTS ON THE CASE: None. DISPOSITION: The patient is discharged to home. CONDITION AT THE TIME OF DISCHARGE: Stable. DISCHARGE INSTRUCTIONS: The patient was instructed to followup with primary care provider of her choice in the next 1-2 weeks for post hospital followup. She is to resume her oxygen at discharge. IMAGING STUDIES OBTAINED DURING THIS HOSPITALIZATION: Chest x-ray one view. This demonstrated that the patient had a large hiatal hernia with no change in her advanced interstitial fibrosis pattern. PERTINENT LABS: White count is 10.4, hemoglobin 11.7, hematocrit 36.9, platelet count 170. PT was 12.7, INR was 0.98. ABG showed a pH of 7.46, a pCO2 of 54, a pO2 of 67, bicarbonate is 39.6, oxygen saturation of 94%. Sodium is 140, potassium 4.3, chloride 100, bicarbonate is 35, anion gap is 5, BUN is 25, creatinine is 1, lactic acid is 1.3, glucose 135, calcium is 8.8. Initial troponin marker was normal. NT-Pro-BNP was 1148, TSH was 1.99. AST and ALT were 27 and 23 respectively. Microbiology: Respiratory viral panel was positive for Rhinovirus. Blood cultures times two were no growth during this hospitalization. HOSPITAL COURSE: Ms. Amaya is an 78-year-old woman with known stage I diastolic congestive heart failure as well as interstitial pulmonary fibrosis with chronic respiratory failure. She is on home oxygen and had presented to the hospital with worsening shortness of breath with increasing need for oxygen. She was managed with a nonrebreather. She was quickly transitioned to nasal cannula. It was determined that likely the cause of her exacerbation was related to respiratory viral infection. Initially it was thought to be due to acute diastolic congestive heart failure. She was diuresed with IV Lasix, but this did not significantly improve her symptoms. Over the course of her hospital stay, she gradually improved to the point where she felt she was at her baseline. Patient was subsequently discharged home today in stable condition. Total of 29 minutes was spent including all discharge paperwork.
== END 2019-07-01 15:21 | disposition home health service (06) | DRG 196 ==
LOC: M ED 17:45 → M ED INP 17:46 → M MSPAV 22:42 → OBSVTOIN 06-27 15:20
PROVIDERS: ADMIT Internal Medicine; ATTEND Internal Medicine
DX: J84.112 Idiopathic pulmonary fibrosis (principal); J96.21 Acute and chronic respiratory failure with hypoxia; I50.33 Acute on chronic diastolic (congestive) heart failure; I13.0 Hypertensive heart and chronic kidney disease with heart failure and stage 1 through stage 4 chronic kidney disease, or unspecified chronic kidney disease; N18.3 Chronic kidney disease, stage 3 (moderate); I25.10 Atherosclerotic heart disease of native coronary artery without angina pectoris; E78.5 Hyperlipidemia, unspecified; M19.90 Unspecified osteoarthritis, unspecified site; Z79.899 Other long term (current) drug therapy; Z79.82 Long term (current) use of aspirin; Z88.0 Allergy status to penicillin; Z88.2 Allergy status to sulfonamides; Z96.651 Presence of right artificial knee joint; E11.65 Type 2 diabetes mellitus with hyperglycemia; E87.6 Hypokalemia; B97.89 Other viral agents as the cause of diseases classified elsewhere; B34.9 Viral infection, unspecified

== ENCOUNTER 2019-07-11 16:36 | Inpatient (IN) | payer OTHER ==
[~2019-07-11] VITALS: Ht 157.5 cm; Wt 56.4 kg
[~2019-07-11 16:36] MED LIST changes: +ALBU83IN INH; +ASPI81TA85 PO; +FLON1SPR NARES; +LOPE2CAP PO; +[UNRECOGNIZED DRUG - CODE] INH
[2019-07-11] MEDS ORDERED: LOSA50TA88 PO (17:06)
[2019-07-11] MEDS ORDERED: CO Q100C10 PO (17:06)
[2019-07-11] MEDS ORDERED: CLOP75TA2 PO (17:06)
[2019-07-11] MEDS ORDERED: NS 1,000 ML IV ONE (17:30)
[2019-07-11 17:37] LABS: BASO # 0.1 10^3/uL (0.0-0.2); BASO % 0.6 % (0.0-1.0); EOS # 0.4 10^3/uL (0.0-0.5); EOS % 2.6 % (0.0-3.0); HEMATOCRIT 41.2 % (36.0-47.0); LYMPH # 2.4 10^3/uL (1.5-5.0); LYMPH % 17.6 % (24.0-44.0); MEAN CORPUSCULAR HEMOGLOBIN 30.9 pg (27.0-33.0); MEAN CORPUSCULAR HGB CONC 31.6 g/dl (32.0-36.5); MEAN CORPUSCULAR VOLUME 97.9 fl (80.0-96.0); MONO # 1.1 10^3/uL (0.0-0.8); MONO % 8.4 % (0.0-5.0); NEUTROPHILS # 9.3 10^3/uL (1.5-8.5); NEUTROPHILS % 69.1 % (36.0-66.0); PLATELET COUNT, AUTOMATED 310 10^3/uL (150-450); RED BLOOD COUNT 4.21 10^6/uL (4.00-5.40); WHITE BLOOD COUNT 13.5 10^3/uL (4.0-10.0)
[2019-07-11] MEDS ORDERED: ALBUTEROL SULFATE 2.5 MG/0.5 ML INH NEB SOLN INH ONE (17:45)
[2019-07-11] MEDS ORDERED: IPRATROPIUM 0.5MG/ALBUTEROL 2.5MG INH SOL UD 3ML (DUONEB)(J7620) NEB ONE (17:45)
--- NOTE | 2019-07-11 17:58 | REP ---
AP PORTABLE CHEST: 07/11/2019. Comparison: 06/26/2019, 05/08/2019. Clinical history: Dyspnea and cough. Findings: The lungs are more hypoinflated on the current study than the previous two examinations. There is underlying diffuse interstitial lung changes. There is heavier markings in the left base adjacent to the left heart border that could be atelectasis or infiltrate. Extensive diffuse fibrotic changes with some peribronchial thickening noted. No gross effusion. Heart size unchanged. Aorta and airway unchanged. Impression: 1. Chronic diffuse interstitial fibrotic change moderate to moderately severe with a lower level of inflation but allowing for that there is still appearance of increased parenchymal density at the left heart border suggesting some subsegmental atelectasis or infiltrate developed since the previous study 06/26/2019.2. No gross cardiomegaly, pleural effusion or diallo edema. Electronically Signed by Shailesh Beltran MD 07/11/2019 08:24 P
[2019-07-11] MEDS ORDERED: LevoFLOXacin IV 750 MG in IV 1 EA IV ONE (18:30)
[2019-07-11] MEDS ORDERED: LORazepam 2 MG/ML VIAL (J2060) IV STA (18:33)
[2019-07-11 19:12] LABS: ALBUMIN 3.1 GM/DL (3.2-5.2); ALT/SGPT 23 U/L (12-78); BILIRUBIN,DIRECT 0.2 MG/DL (0.0-0.2); BILIRUBIN,TOTAL 0.5 MG/DL (0.2-1.0); BLOOD UREA NITROGEN 29 MG/DL (7-18); CARBON DIOXIDE LEVEL 29 MEQ/L (21-32); CHLORIDE LEVEL 101 MEQ/L (98-107); CK-MB VALUE MASS 6.4 NG/ML (<3.6); CPK CREATINE PHOSPHOKINASE 69 U/L (26-192); CREATININE FOR GFR 0.85 MG/DL (0.55-1.30); GLOMERULAR FILTRATION RATE > 60.0 (>32); GLUCOSE, FASTING 130 MG/DL (70-100); MB/CK RELATIVE INDEX 9.28 (< OR =4); POTASSIUM SERUM 3.9 MEQ/L (3.5-5.1); SODIUM LEVEL 140 MEQ/L (136-145); TOTAL PROTEIN 7.4 GM/DL (6.4-8.2); TROPONIN I < 0.02 NG/ML (< 0.10)
--- NOTE | 2019-07-11 19:48 | HPEPDOC ---
[facility] Medical History & Physical Date of Admission Jul 11, 2019 Date of Service: Jul 11, 2019 Primary Care Physician: SUNDAY HARDEN MD Attending Physician: BONNY FARFAN MD History and Physical TIME OF SERVICE: 9:05 PM CHIEF COMPLAINT: Shortness of breath HISTORY OF PRESENT ILLNESS: This is an 78-year-old female who presents with complaints of partially worsening dyspnea over the last 2-3 days. She complainS that she "can't get up can't do activities", and has been feeling nervous and anxious which makes her breathing worse. Because of the dyspnea she "can't get comfortable." Associated symptoms include mid constant chest pressure, dry cough, runny nose, and headache. She denies having fevers or chills. She is also complaining of having "a hard time swallowing"; she can't eat dry foods and has to soak her foods and liquids. As a result, she's lost some weight. REVIEW OF SYSTEMS: 12 point review of systems negative except as listed in HPI PAST MEDICAL/ SURGICAL HISTORY: UIP/IPF Pulmonary HTN Chronic hypertension/chronic grade 1 diastolic dysfunction Chronic CAD. Stage I or II CKD Hypothyroidism OA. Dyslipidemia. Status post right knee replacement Status post hysterectomy SOCIAL HISTORY: Former smoker FAMILY HISTORY: Rheumatoid arthritis ALLERGIES: Please see below. HOME MEDICATIONS: Please see below. PHYSICAL EXAMINATION: VITAL SIGNS: Please see below. GENERAL APPEARANCE: Slim built, well-developed, appears chronically ill HEENT: Normocephalic, atraumatic, nasal cannula, place, mucous membranes dry CARDIOVASCULAR: Tachycardic, radial pulses are bounding LUNGS: She is unable to complete full a sentence without having to stop to take of breath, and is using accessory muscles. She has crackles bilaterally, and is coughing occasionally. ABDOMEN: Scaphoid, bowel sounds are positive, the abdomen is soft and nontender on palpation MUSCULOSKELETAL: Extremities are Slim NEUROLOGICAL: Numerous 2-12 are grossly intact. Speech is not dysarthric PSYCHIATRIC: Alert and oriented, able to understand and follow commands LABORATORY DATA: See below. IMAGING: Chest x-ray "Impression: 1. Chronic diffuse interstitial fibrotic change moderate to moderately severe with a lower level of inflation but allowing for that there is still appearance of increased parenchymal density at the left heart border suggesting some subsegmental atelectasis or infiltrate developed since the previous study 06/26/2019. 2. No gross cardiomegaly, pleural effusion or diallo edema. MICROBIOLOGY: Please see below. ASSESSMENT: is 78 yr F w a PMH of IUP/IPF, pulmonary hypertension, chronic hypertension, chronic grade 1 diastolic discussion, chronic CAD, stage I/2 CKD, hypothyroidiMs, OA, and dyslipidemia will be admitted for management of dyspnea. PLAN: 1. Dyspnea Possibly due to left lower lobe pneumonia/pulmonary fibrosis exacerbation SIRS criteria include leukocytosis and a heart rate >95 Sepsis unlikely as lactic acid is 1.1 Chest x-ray showed a left-sided lesion that may represent atelectasis vs pneumonia Per discussion with RN taking care of her she is DNR/DNI and old MOLST form showed that she elected not to receive antibiotics Plan: Admit to PCU/ Pulm consult / f/u CT of the chest / Palliative Care Consult to determine if she is a candidate for pallative care alone or if she is ready for hospice/ supplemental O2 / continuos pulse oximetry / aspiration precautions / f/u sputum cx, blood cx / Dunebs Q6H, Albuterol Q4HP, Solumedrol now, start Prednisone + PPI tomorrow, continue with Levofloxacin pending revision of MOLST form, Tessalon Pearls, Acetaminophen PRN for fever 2.Dysphagia alarm symptom age >60 and weight loss Plan: PPI, soft diet pending swallow eval / f/u w Palliative care evaluation to address goals of care prior to consulting GI for EGD 3.Chronic hypertension/chronic grade 1 diastolic dysfunction Plan: Continue home meds 4.Chronic CAD. Plan: Continue home meds 5.Hypothyroidism Plan: Continue home meds 6.OA. Plan: Continue home meds DVT prophylaxis with Lovenox Disposition pending clinical course Vital Signs Vital Signs Date Time Temp Pulse Resp B/P (MAP) Pulse Ox O2 Delivery O2 Flow Rate FiO2 07/11/19 19:36 103 97 07/11/19 19:30 116/72 (87) 07/11/19 19:21 16 07/11/19 18:56 Nasal Cannula 3.0 07/11/19 18:06 98.0 Laboratory Data Labs 24H Laboratory Tests 2 07/11/19 17:17: Immature Granulocyte % (Auto) 1.7, White Blood Count 13.5H, Red Blood Count 4.21, Hemoglobin 13.0, Hematocrit 41.2, Mean Corpuscular Volume 97.9H, Mean Corpuscular Hemoglobin 30.9, Mean Corpuscular Hemoglobin Concent 31.6L, Red Cell Distribution Width 15.2H, Platelet Count 310, Neutrophils (%) (Auto) 69.1H, Lymphocytes (%) (Auto) 17.6L, Monocytes (%) (Auto) 8.4H, Eosinophils (%) (Auto) 2.6, Basophils (%) (Auto) 0.6, Neutrophils # (Auto) 9.3H, Lymphocytes # (Auto) 2.4, Monocytes # (Auto) 1.1H, Eosinophils # (Auto) 0.4, Basophils # (Auto) 0.1, Nucleated Red Blood Cells % (auto) 0.1H, Anion Gap 10, Glomerular Filtration Rate > 60.0, Calcium Level 9.0, Aspartate Amino Transf (AST/SGOT) 35, Alanine Aminotransferase (ALT/SGPT) 23, Alkaline Phosphatase 80, Total Bilirubin 0.5, Direct Bilirubin 0.2, Total Creatine Kinase 69, Creatine Kinase MB 6.4H, Creatine Kinase MB Relative Index 9.28H, Troponin I < 0.02, Total Protein 7.4, Albumin 3.1L, Albumin/Globulin Ratio 0.72L 07/11/19 17:27: Lactic Acid Level 1.1 CBC/BMP Laboratory Tests 07/11/19 17:17 Red Blood Count 4.21, Mean Corpuscular Volume 97.9 H, Mean Corpuscular Hemoglo bin 30.9, Mean Corpuscular Hemoglobin Concent 31.6 L, Red Cell Distribution Width 15.2 H, Neutrophils (%) (Auto) 69.1 H, Lymphocytes (%) (Auto) 17.6 L, Monocytes (%) (Auto) 8.4 H, Eosinophils (%) (Auto) 2.6, Basophils (%) (Auto) 0.6, Neutrophils # (Auto) 9.3 H, Lymphocytes # (Auto) 2.4, Monocytes # (Auto) 1.1 H, Eosinophils # (Auto) 0.4, Basophils # (Auto) 0.1 Microbiology Microbiology 07/11/19 Blood Culture, Received Pending Home Medications Scheduled Acetylcysteine (Acetylcysteine) 200 Mg/1 Ml Vial, 400 MG INH BID MIX WITH VIAL OF ALBUTEROL Albuterol Sulf (Albuterol Sulfate) 2.5 Mg/3 Ml Vial.neb, 1 VIAL INH BID TO BE MIXED WITH ACETYLCYSTEINE Aspirin (Aspir 81) 81 Mg Tablet.dr, 81 MG PO DAILY Clopidogrel Bisulfate (Clopidogrel) 75 Mg Tablet, 75 MG PO DAILY Ferrous Sulfate (Ferrous Sulfate) 325 Mg Tablet, 325 MG PO 2XWK SUNDAY AND SUNDAY Fluticasone Propionate (Flonase Allergy Relief) 9.9 Ml [place].susp, 2 SPRAY NARES DAILY Furosemide (Furosemide) 40 Mg Tablet, 40 MG PO DAILY Hydralazine HCl (Hydralazine HCl) 25 Mg Tablet, 25 MG PO BID Levothyroxine Sodium (Synthroid) 50 Mcg Tablet, 50 MCG PO DAILY Losartan Potassium (Losartan Potassium) 50 Mg Tablet, 50 MG PO DAILY Nintedanib Esylate (Ofev) 100 Mg Capsule, 100 MG PO BID SECOND DOSE AT DINNERTIME Omeprazole (Omeprazole) 20 Mg Capsule.dr, 20 MG PO DAILY Potassium Chloride (Potassium Chloride) 20 Meq Tab.er.prt, 20 MEQ PO TID Pravastatin Sodium (Pravastatin Sodium) 40 Mg Tablet, 40 MG PO QHS Ubidecarenone/Vit E Acet (Co Q-10 100 mg Softgel) 1 Each Capsule, 100 MG PO DAILY Scheduled PRN Acetaminophen (Tylenol Extra Strength) 500 Mg Tablet, 1,000 MG PO Q8H PRN for PAIN Loperamide HCl (Loperamide) 2 Mg Capsule, 4 MG PO Q6H PRN for DIARRHEA Allergies Coded Allergies: Penicillins (Verified Allergy, Severe, PASSED OUT/CONVULSIONS, 05/06/19) Sulfa (Sulfonamide Antibiotics) (Verified Allergy, Intermediate, HIVES, 05/06/19) A-FIB/CHADSVASC A-FIB History Current/History of A-Fib/PAF?: No Current PO Anticoag Therapy: No BONNY FARFAN MD Jul 11, 2019 19:48
[2019-07-11] MEDS: ACETYLCYSTEINE 20% 4 ML VIAL (200MG/ML) INH SCH (20:00)
--- NOTE | 2019-07-11 20:22 | ECGEPIP ---
[facility] - ED Test Date: 2019-07-11 Pat Name: JOSÉ MANUEL RODRIGUEZ Department: Room: - Gender: Female Frame Operator: JAndre : [id number] Requested By: Suki Barajas Order Number: [id number] Reading MD: Liborio Roberts Measurements Intervals [place] Rate: 89 P: 6 [place]: 197 QRS: -10 QRSD: 90 T: 97 QT: 347 QTc: 423 Interpretive Statements SINUS RHYTHM LEFT VENTRICULAR HYPERTROPHY AND ST-T CHANGE SIMILAR TO 06/26/19 Electronically Signed on 07-11-2019 20:21:56 EDT by Liborio Roberts
[2019-07-11] MEDS: PRAVASTATIN 20 MG TAB PO SCH (21:00)
[2019-07-11] MEDS: **hydrALAZINE HCL** 25 MG TAB PO SCH (21:00)
[2019-07-11] MEDS ORDERED: methylPREDNISolone INJ 125 MG/2 ML VIAL (J2930) IV ONE (22:15)
[2019-07-11] MEDS ORDERED: BENZONATATE 100 MG CAP PO PRN (22:15)
[2019-07-11] MEDS ORDERED: ALBUTEROL SULFATE 2.5 MG/0.5 ML INH NEB SOLN NEB PRN (22:15)
[2019-07-11] MEDS ORDERED: ISOVUE-370 76% 100ML VIAL (Q9967) As Ordered ONE (22:24)
[2019-07-11] MEDS ORDERED: LOPERAMIDE 2 MG CAP PO PRN (22:30)
[2019-07-11] MEDS: POTASSIUM CHLORIDE 10 MEQ SR TABLET PO SCH (22:51)
[2019-07-12 01:22] VITALS: BP 156/90
[2019-07-12] MEDS: IPRATROPIUM 0.5MG/ALBUTEROL 2.5MG INH SOL UD 3ML (DUONEB)(J7620) NEB SCH ×2 (02:00→08:40)
[2019-07-12] MEDS ORDERED: LORazepam 0.5 MG TAB PO ONE ×2 (03:30→22:00)
[2019-07-12 05:39] LABS: HEMATOCRIT 38.2 % (36.0-47.0); HEMOGLOBIN 12.2 g/dl (12.0-15.5); MEAN CORPUSCULAR HEMOGLOBIN 30.7 pg (27.0-33.0); MEAN CORPUSCULAR HGB CONC 31.9 g/dl (32.0-36.5); PLATELET COUNT, AUTOMATED 294 10^3/uL (150-450); RED BLOOD COUNT 3.98 10^6/uL (4.00-5.40); WHITE BLOOD COUNT 11.4 10^3/uL (4.0-10.0)
[2019-07-12 05:42] VITALS: BP 131/82
[2019-07-12 05:58] LABS: BLOOD UREA NITROGEN 27 MG/DL (7-18); CALCIUM LEVEL 9.2 MG/DL (8.8-10.2); CARBON DIOXIDE LEVEL 30 MEQ/L (21-32); CHLORIDE LEVEL 101 MEQ/L (98-107); CREATININE FOR GFR 0.87 MG/DL (0.55-1.30); GLOMERULAR FILTRATION RATE > 60.0 (>32); GLUCOSE, FASTING 183 MG/DL (70-100); POTASSIUM SERUM 4.6 MEQ/L (3.5-5.1); SODIUM LEVEL 140 MEQ/L (136-145)
[2019-07-12] MEDS: ACETYLCYSTEINE 20% 4 ML VIAL (200MG/ML) INH SCH ×2 (08:41→19:28)
[2019-07-12] MEDS ORDERED: PNEUMOCOCCAL VACCINE 0.5ML SYRINGE(90732) PNEUMOVAX 23 IM ONE (09:00)
[2019-07-12] MEDS: ENOXAPARIN 40 MG/0.4 ML SYRINGE (J1650) SC SCH (09:00)
[2019-07-12 09:29] LABS: NT-PRO BNP 1958 PG/ML (<450)
[2019-07-12] MEDS: FUROSEMIDE 40 MG TAB PO SCH (09:55)
[2019-07-12] MEDS: PANTOPRAZOLE 40MG TAB (PROTONIX) PO SCH (09:55)
[2019-07-12] MEDS: LEVOTHYROXINE 50MCG TABLET (0.05MG) PO SCH (09:55)
[2019-07-12] MEDS: predniSONE 20 MG TAB PO SCH (09:55)
[2019-07-12] MEDS: POTASSIUM CHLORIDE 10 MEQ SR TABLET PO SCH ×3 (09:55→21:49)
[2019-07-12] MEDS: ASPIRIN 81 MG ENTERIC TAB PO SCH (09:56)
[2019-07-12] MEDS: **hydrALAZINE HCL** 25 MG TAB PO SCH ×2 (09:58→21:50)
[2019-07-12] MEDS: LOSARTAN 50 MG TAB PO SCH (09:58)
[2019-07-12 10:00] VITALS: BP 133/80
[2019-07-12] MEDS: CLOPIDOGREL 75 MG TAB PO SCH (10:00)
--- NOTE | 2019-07-12 10:05 | REPVR ---
PROCEDURE INFORMATION: Exam: CT Chest With Contrast Exam date and time: 07/11/2019 10:32 PM Clinical history: 78 years old, female; Dyspnea; Additional info: Dyspnea / f/u on left sided lesion TECHNIQUE: Imaging protocol: Computed tomography of the chest with intravenous contrast. 3D rendering: MIP reconstructed images were created and reviewed. Radiation optimization: All CT scans at this facility use at least one of these dose optimization techniques: automated exposure control; mA and/or kV adjustment per patient size (includes targeted exams where dose is matched to clinical indication); or iterative reconstruction. Contrast material: ISOVUE 370; Contrast volume: 100 ml; Contrast route: IV; COMPARISON: CT ANGIO CHEST 06/06/2019 1:43 AM FINDINGS: Lungs: Diffuse interstitial fibrosis with honeycombing and bronchiectasis are again demonstrated. Groundglass opacities previously seen in the lungs have improved but have not completely resolved. No new air space infiltrates are seen. Pleural space: No pneumothorax or pleural effusion is seen. Heart: Mild coronary artery atherosclerotic disease is present. Mild cardiomegaly. Mediastinum: There is a mild pneumomediastinum of uncertain etiology. There is a moderate-sized hiatal hernia. Pulmonary arteries: Main pulmonary arteries are mildly enlarged, similar to the prior exam. Aorta: Unremarkable. No aortic aneurysm. Lymph nodes: Unremarkable. No enlarged lymph nodes. Bones/joints: Skeletal degenerative changes are noted. Soft tissues: Unremarkable. IMPRESSION: 1. Diffuse interstitial fibrosis. 2. Interval improvement of groundglass pulmonary opacities since the previous exam. Some residual opacities are present. No new pulmonary abnormalities are seen. 3. Mild pneumomediastinum of uncertain etiology. No pneumothorax or pleural effusion. 4. Stable appearance of other chronic findings as above. Electronically signed by: Philip Briscoe On 07/11/2019 23:43:18 PM
[2019-07-12] MEDS: CHLORHEXIDINE GLUCONATE 0.12 % 15ML UDC (PERIDEX ORAL RINSE) MT SCH ×2 (10:08→21:49)
[2019-07-12] MEDS: SALIVA SUBSTITUTE(MOUTHKOTE) BTL MT PRN ×2 (10:11→11:11)
[2019-07-12] MEDS: FLUTICASONE PROP 0.05% NASAL SPRAY 16 GM (FLONASE) NARES SCH (12:00)
--- NOTE | 2019-07-12 12:35 | IPNPDOC ---
Text Note Date of Service The patient was seen on 07/12/19. NOTE Patient was seen and examined by me this morning. The patient is on 2 L nasal cannula, lying comfortably on the bed. No overnight events. PHYSICAL EXAMINATION: GENERAL APPEARANCE: Slim built, well-developed, appears chronically ill HEENT: Normocephalic, atraumatic, nasal cannula, place, mucous membranes dry CARDIOVASCULAR: Tachycardic, radial pulses are bounding LUNGS: Speaking in full sentences, not using any accessory muscles. Velcro rales heard on bilateral also lung plascencia. ABDOMEN: Scaphoid, bowel sounds are positive, the abdomen is soft and nontender on palpation MUSCULOSKELETAL: Extremities are Slim NEUROLOGICAL: Numerous 2-12 are grossly intact. Speech is not dysarthric PSYCHIATRIC: Alert and oriented, able to understand and follow commands Radiology reviewed Assessment and plan is 78 yr F w a PMH of IUP/IPF, pulmonary hypertension, chronic hyp ertension, chronic grade 1 diastolic discussion, chronic CAD, stage I/2 CKD, hypothyroidism, OA, and dyslipidemia will be admitted for management of dyspnea and for possible exacerbation of her pulmonary fibrosis. The patient is clinically doing better today. He is currently on 2 L of nasal cannula got 125 mg of Solu-Medrol and is currently on 40 of prednisone. We will continue the same at this time. Also, Levaquin has been added. The patient also has been complaining of dysphagia, both for solids or liquids. For that reason, I have ordered a barium swallow. The patient is okay with endoscopy if warranted. CT scan showing extensive pulmonary fibrosis with minimal pneumomediastinum. The patient also has been complaining of chest pressure, likely secondary to pneumonia this time and for that reason, pulmonary has been consulted as well. The patient is DNR/DNI. Palliative care services also have been consulted for her. 1. Dyspnea : Possibly due to left lower lobe pneumonia/pulmonary fibrosis exacerbation. she is DNR/DNI . Pulmonary has been consulted, and currently the patient is on steroids due to levaquin, Mucomyst. Continue supplemental oxygen to maintain the saturation above 92. Continue to follow the pulmonary recommendations. The patient has poor prognosis 2.Dysphagia. With weight loss and age greater than 60. The patient would require a possible endoscopy, which she is okay with. Currently became swallow will be done today. Once. Swallow was done, We will decide about EGD by GI 3.Chronic hypertension/chronic grade 1 diastolic dysfunction: Continue home meds 4.Chronic CAD. Continue home meds Disposition: Patient has poor prognosis and once the palliative care services evaluated the patient disposition can be determined. Also no family member is present at the bedside at this time. DVT prophylaxis with Lovenox Hermelinda Tran M.D VS,Fishbone, I+O VS, Fishbone, I+O Laboratory Tests 07/11/19 17:17 Red Blood Count 4.21, Mean Corpuscular Volume 97.9 H, Mean Corpuscular Hemoglobin 30.9, Mean Corpuscular Hemoglobin Concent 31.6 L, Red Cell Distribution Width 15.2 H, Neutrophils (%) (Auto) 69.1 H, Lymphocytes (%) (Auto) 17.6 L, Monocytes (%) (Auto) 8.4 H, Eosinophils (%) (Auto) 2.6, Basophils (%) (Auto) 0.6, Neutrophils # (Auto) 9.3 H, Lymphocytes # (Auto) 2.4, Monocytes # (Auto) 1.1 H, Eosinophils # (Auto) 0.4, Basophils # (Auto) 0.1 07/12/19 05:21 Red Blood Count 3.98 L, Mean Corpuscular Volume 96.0, Mean Corpuscular Hemoglobin 30.7, Mean Corpuscular Hemoglobin Concent 31.9 L, Red Cell Distribution Width 15.4 H, Calcium Level 9.2 Vital Signs Date Time Temp Pulse Resp B/P (MAP) Pulse Ox O2 Delivery O2 Flow Rate FiO2 07/12/19 10:00 99.0 100 20 133/80 (97) 94 2.0 07/11/19 19:50 Nasal Cannula I&O- Last 24 Hours up to 6 AM 07/12/19 06:00 Intake Total 420 ml Output Total 0 ml Balance 420 ml TARAN KIM MD Jul 12, 2019 12:35
--- NOTE | 2019-07-12 13:15 | CR ---
DATE OF CONSULTATION: 07/12/2019 CHIEF COMPLAINT: Weakness and fatigue. HISTORY OF PRESENT ILLNESS: Ms. Madsen is an 78-year female with a past medical history of hypertension, coronary artery disease, hyperlipidemia, chronic kidney disease, idiopathic pulmonary fibrosis on Ofev, osteoarthritis who presented to the hospital with complaints of weakness for the past 1-2 weeks, as well as decreasing appetite and difficulty tolerating oral intake. She has also felt she has had some episodes of increased shortness of breath and anxiety as well in the past few days. The patient is chronically on nasal cannula oxygen supplementation at 4 liters a minute, will go up to 8 liters minute with exertion. Did not note any episodes of desaturation while at home and she denies any chest pain. She does have a chronic cough but does not feel she has been increasing in cough or sputum production. Denied any episodes of vomiting. No nausea. She does complain of some discomfort in her mid sternal region, as well as feeling difficulty with swallowing solid foods, which she reports is due to dry mouth sensation. She does also report a significantly decreased appetite and decreased oral intake. She has been feeling weaker and weaker and has also been feeling more anxious, which she feels is also contributing to her shortness of breath. The patient was last seen in our clinic in May. After that visit, the patient had felt weak and dizzy and presented to the hospital. She was transferred to [facility] for evaluation and she was admitted there with an dcc-DK-[id number] myocardial infarction (NSTEMI) thought to be due to decompensated heart failure, as well as a possible IPF exacerbation. The patient was diuresed on that visit and was discharged requiring 8 liters nasal cannula oxygen. She was able to be weaned down from that but was readmitted at [facility] earlier in June due to desaturation and shortness of breath. The patient was felt to have an acute exacerbation secondary to a viral upper respiratory infection. She was treated with antibiotics and steroids, as well as some diuresis for her chronic heart failure. She was discharged on July 01 and since discharge the patient had reported the symptoms of worsening weakness and decreased appetite, difficulty with swallowing and eating and midsternal discomfort and failure to thrive. PAST MEDICAL HISTORY/PAST SURGICAL HISTORY: 1. Hypertension. 2. Coronary artery disease. 3. Hyperlipidemia. 4. Chronic kidney disease. 5. Idiopathic pulmonary fibrosis. 6. Right knee replacement. 7. Hysterectomy. 8. Osteoarthritis. 9. Hypothyroidism. 10. Diabetes. 11. Chronic hypoxemic respiratory failure on nasal cannula 4 to 5 liters a minute up to 7 to 8 liters a minute with exertion. 12. Heart failure preserved ejection fraction with pulmonary hypertension. FAMILY HISTORY: Mother with history rheumatoid arthritis. No other family history of interstitial lung disease. SOCIAL HISTORY: Former smoker, two to three packs a day for 15 years, quit in her 50s. 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 Does not have any pets at home. ALLERGIES: PENICILLIN, SULFA, DUST, MOLDS. HOME MEDICATIONS: - Mucomyst twice a day - albuterol - aspirin - Plavix - ferrous sulfate - Flonase - Lasix 40 mg daily - hydralazine 25 mg twice a day - Synthroid 50 mcg daily - loperamide as needed - losartan 50 mg daily - Ofev 100 mg twice a day - omeprazole 20 mg daily - potassium chloride 20 mEq three times a day - pravastatin PHYSICAL EXAMINATION Vitals: Temperature 98.1, pulse 89, respirations 20, blood pressure 131/82, oxygen sat 93% on 2 liters nasal cannula. General: The patient is an elderly female who is lying in bed, appears mildly anxious, is not in any acute respiratory distress, is able to speak in complete sentences and is not using any accessory muscles for respiration. HEENT: Normocephalic, atraumatic. Pupils are reactive. The patient has dry lips and moist mucous membranes but evidence of some thick mucus coating the back of her throat. The neck is supple. Trachea is midline. No palpable adenopathy. Cardiovascular: Regular rate and rhythm. Normal S1, S2. There is a loud systolic murmur in the left sternal border. Pulmonary: There are crackles at the bases bilaterally. Diminished breath sounds. Some coarse breath sounds but no wheezes or rhonchi. Abdomen: Soft, nontender, nondistended. No palpable hepatomegaly. Lower extremities: There is trace lower extremity edema bilaterally. LABORATORY DATA: WBC 11.4, hemoglobin 12.2, platelets 294. Chemistry: Sodium is 140, potassium 4.6, chloride is 101, bicarbonate is 30, BUN 29, creatinine 0.87, glucose is 183, lactic acid was 1.1. Troponins were negative. BNP was 1958. IMAGING STUDIES: CT chest pending official read but on my review there is new pneumomediastinum noted with air around her trachea and extending into the mid and posterior mediastinum, which was not seen on her previous CT in May. There is previously noted fibrosis with associated bronchiectasis in the lungs bilaterally, worse in the lower lung plascencia. There is some slight improvement in the diffuse ground-glass opacities, which were previously noted in May and some improvement in the intralobular septal thickening as previously noted. She does have trace left pleural effusion. There are no focal opacities or infiltrates. There is a moderate hiatal hernia present. There are scattered subpleural nodules and a calcified granuloma in the right lower lobe. There is no evidence of pneumothorax. The pulmonary artery is enlarged suggesting pulmonary hypertension. There is a mild aneurysmal dilation of her a ascending thoracic aorta. No significant mediastinal adenopathy. Previous echo from her admission to [facility] in May showed normal left ventricular ejection fraction with evidence of diastolic dysfunction. Left atrium is moderately dilated and right atrium is mildly dilated. Right ventricle was normal. IVC appeared dilated with evidence of increased central venous pressure. There was mild to moderate regurgitation of her mitral valve. There was mild tricuspid valve regurgitation and evidence of moderate pulmonary hypertension. There is no pericardial effusion. ASSESSMENT/PLAN: Ms. Madsen is an 78-year-old female with a past medical history of hypertension, coronary artery disease, hyperlipidemia, chronic kidney disease, diabetes, idiopathic pulmonary fibrosis with chronic hypoxemic respiratory failure who presented with complaints of weakness, decreased appetite, difficulty eating with decreased oral intake with some mid sternal discomfort associated, as well as some episodes of anxiety and worsening shortness of breath. On admission, the patient was afebrile. She did have some slight leukocytosis and her initial chest x-ray showed concern for possible new infiltrate, and the patient was started on antibiotics for possible pneumonia, as well as steroids for possible IPF exacerbation. The patient does not appear to be requiring increase in her usual supplemental oxygen. At home, she is on 4 liters a minute at baseline and here has been using 2 liters a minute and satting 93%. The patient did have a CT chest done for further evaluation. On the CT there were no new focal opacities or infiltrates to suggest pneumonia. The previously noted ground-glass opacities and some intralobular septal thickening appears to have improved slightly on this most recent CT. She does have the chronic evidence of fibrosis and bronchiectasis, which is unchanged. There is also new to pneumomediastinum noted, which was not seen on her previous imaging in May. The patient had denied any increasing cough, no vomiting or straining that she reported. Suspect some of her mid sternal discomfort and even difficulty with her swallowing may be due to the pneumomediastinum. There was no evidence of pneumothorax noted. The patient did have elevated BNP; however, she does have pulmonary hypertension, likely a combination of group II and group III given her diastolic dysfunction and her chronic hypoxemic lung disease. Suspect her BNP will always be slightly elevated. She is on Lasix and she does not appear to be overtly more fluid overloaded than her baseline but she may benefit from some gentle diuresis. Supportive measures for her pneumomediastinum, including pain control and cough suppression if needed. The patient denies any significant pain currently and denies any increasing cough. Would continue to monitor. We will increase her nasal cannula oxygen supplementation to 4 liters a minute for the pneumomediastinum. We will also give her bubble humidifier. We will increase her mouth care with chlorhexidine wash, as well as well as saliva substitute as she reports that the dry mouth has been impacting her ability to eat. The patient can benefit from nutrition consult, as we discussed the importance of maintaining adequate nutrition with her IPF diagnosis. We will give her Ensure supplements for now. Suspect the patient is not far from her baseline in terms of her respiratory status. We will check a procalcitonin, but can likely discontinue antibiotics and monitor the patient without antibiotics, as she does not appear to have any acute infiltrates or opacities on imaging. Can continue with the prednisone for now, although I doubt she is having an acute IPF exacerbation. The prednisone may help with some of her appetite stimulant but would likely only treat with a short course of prednisone. Continue with her home Mucomyst and albuterol nebulizers for pulmonary toilet and mucus clearance as she does have bronchiectasis. Continue with Lasix for diuresis. Would monitor her ins and outs. Given her history of heart failure with preserved ejection fraction and pulmonary hypertension, she may benefit from some gentle diuresis as well. Would continue to closely monitor her renal function and her electrolytes. Continue with home medication of Ofev 100 mg twice a day. If the patient is able tolerate without any increased diarrhea would increase her to 150 mg twice a day. She will need to bring in the medications from home, however. Deep vein thrombosis (DVT) prophylaxis. Lovenox. Gastrointestinal prophylaxis. CODE STATUS: DO NOT RESUSCITATE, DO NOT INTUBATE. The patient does understand with her diagnosis of IPF and multiple recent hospitalizations that she may have continued decline and will likely not recover to her initial respiratory or functional status. The patient's goal is to return to [place]. She is planning to drive with her in an RV for the trip. [place]
[2019-07-12 14:00] VITALS: BP 133/81
[2019-07-12 18:00] VITALS: BP 114/70
[2019-07-12] MEDS: OFEV 100 MG PO SCH (18:00)
[2019-07-12] MEDS: LevoFLOXacin IV 250 MG in IV 1 EA IV SCH (18:12)
[2019-07-12] MEDS: ALBUTEROL SULFATE 2.5 MG/0.5 ML INH NEB SOLN NEB SCH (19:28)
[2019-07-12] MEDS: PRAVASTATIN 20 MG TAB PO SCH (21:49)
[2019-07-12 22:00] VITALS: BP 109/62
[2019-07-13 02:00] VITALS: BP 109/62
[2019-07-13 06:00] VITALS: BP 120/64
[2019-07-13] MEDS: ACETYLCYSTEINE 20% 4 ML VIAL (200MG/ML) INH SCH (07:27)
[2019-07-13] MEDS: ALBUTEROL SULFATE 2.5 MG/0.5 ML INH NEB SOLN NEB SCH ×2 (07:27→19:27)
[2019-07-13 08:37] LABS: HEMATOCRIT 37.8 % (36.0-47.0); MEAN CORPUSCULAR HEMOGLOBIN 31.7 pg (27.0-33.0); MEAN CORPUSCULAR HGB CONC 31.7 g/dl (32.0-36.5); MEAN CORPUSCULAR VOLUME 99.7 fl (80.0-96.0); PLATELET COUNT, AUTOMATED 314 10^3/uL (150-450); RED BLOOD COUNT 3.79 10^6/uL (4.00-5.40)
[2019-07-13] MEDS: ASPIRIN 81 MG ENTERIC TAB PO SCH (08:43)
[2019-07-13] MEDS: POTASSIUM CHLORIDE 10 MEQ SR TABLET PO SCH ×3 (08:43→20:16)
[2019-07-13] MEDS: FUROSEMIDE 40 MG TAB PO SCH (08:43)
[2019-07-13] MEDS: CHLORHEXIDINE GLUCONATE 0.12 % 15ML UDC (PERIDEX ORAL RINSE) MT SCH ×2 (08:43→20:16)
[2019-07-13] MEDS: OFEV 100 MG PO SCH ×2 (08:43→18:21)
[2019-07-13] MEDS: predniSONE 20 MG TAB PO SCH (08:44)
[2019-07-13] MEDS: PANTOPRAZOLE 40MG TAB (PROTONIX) PO SCH (08:44)
[2019-07-13] MEDS: LEVOTHYROXINE 50MCG TABLET (0.05MG) PO SCH (08:44)
[2019-07-13] MEDS: LOSARTAN 50 MG TAB PO SCH (08:45)
[2019-07-13] MEDS: **hydrALAZINE HCL** 25 MG TAB PO SCH ×2 (08:45→20:24)
[2019-07-13] MEDS: ENOXAPARIN 40 MG/0.4 ML SYRINGE (J1650) SC SCH (08:47)
[2019-07-13] MEDS: CLOPIDOGREL 75 MG TAB PO SCH (08:47)
[2019-07-13] MEDS: SALIVA SUBSTITUTE(MOUTHKOTE) BTL MT PRN (08:48)
[2019-07-13 08:58] LABS: CALCIUM LEVEL 9.3 MG/DL (8.8-10.2); GLOMERULAR FILTRATION RATE 56.8 (>32); POTASSIUM SERUM 4.8 MEQ/L (3.5-5.1)
[2019-07-13] MEDS: FLUTICASONE PROP 0.05% NASAL SPRAY 16 GM (FLONASE) NARES SCH (09:53)
[2019-07-13 10:15] VITALS: BP 114/69
--- NOTE | 2019-07-13 10:53 | IPNPDOC ---
Subjective Date Seen The patient was seen on 07/13/19. Subjective Chief Complaint/HPI In no apparent pulmonary distress ,Patient feeling better. Improved air exchange General: Denies: ROS Unobtainable, Chills, Night Sweats, Fatigue, Malaise, Normal Appetite, Other Symptoms Constitutional: Denies: Chills, Fever, Malaise, Night Sweats, Weakness, Fatigue, Weight Loss, Lethargy, Other Eyes: Denies: Pain, Vision change, Conjunctivae inflammation, Eyelid inflammation, Redness, Other Pulmonary: Denies: Dyspnea, Cough Cardiovascular: Denies: Chest Pain, Palpitations, Orthopnea, Paroxysmal Noc. Dyspnea, Edema, Lt Headedness, Other Symptoms Gastrointestinal: Denies: Nausea, Vomiting, Abdominal Pain, Diarrhea, Constipation, Melena, Hematochezia, Other Symptoms Musculoskeletal: Denies: Neck Pain, Back Pain, Shoulder Pain, Arm Pain, Hand Pain, Leg Pain, Foot Pain, Joint Pain, Muscle Pain, Spasms, Other Symptoms Neurological: Denies: Weakness, Numbness, Incoordination, Change in speech, Confusion, Seizures, Other Symptoms Objective Physical Examination General Exam: Positive: Alert, Cooperative Eye Exam: Positive: PERRLA, Conjunctiva & lids normal ENT Exam: Positive: Atraumatic, Mucous membr. moist/pink Neck Exam: Positive: Supple Chest Exam: Positive: Clear to auscultation, Diminished Heart Exam: Positive: Rate Normal, Normal S1, Normal S2 Abdomen Exam: Positive: Normal bowel sounds, Soft Skin Exam: Positive: Nl turgor and temperature Neuro Exam: Positive: Strength at 5/5 X4 ext, Sensation Intact Assessment /Plan Problems (1) Pulmonary fibrosis Status: Acute Problem Text: Patient had been started prednisone , Decrease prednisone to 30 mg by mouth daily and slowly taper it off Continue nebulizer treatments Continue Mucomyst and Levaquin Continue O2 support Patient is DNR/DNI Poor prognosis (2) Pneumonia Status: Acute Problem Text: , Possible left lower lobe pneumonia Continue Levaquin CBC in a.m. (3) Dysphagia Status: Acute Problem Text: History of weight loss Barium swallow Further, as per recommendation for a speech therapy Plan/VTE VTE Prophylaxis Ordered?: Yes VS, I&O, 24H, Fishbone Vital Signs/I&O Vital Signs Date Time Temp Pulse Resp B/P (MAP) Pulse Ox O2 Delivery O2 Flow Rate FiO2 07/13/19 09:00 4.0 07/13/19 08:45 109/62 07/13/19 06:00 97.4 81 99 07/13/19 02:00 17 07/11/19 19:50 Nasal Cannula I&O- Last 24 Hours up to 6 AM 07/13/19 05:59 Intake Total 420 ml Output Total 625 ml Balance -205 ml Laboratory Data 24H LABS Laboratory Tests 2 07/13/19 07:30: Nucleated Red Blood Cells % (auto) 0.1H, Anion Gap 5L, Glomerular Filtration Rate 56.8, Blood Urea Nitrogen 36H, Creatinine 1.00, Sodium Level 142, Potassium Level 4.8, Chloride Level 103, Carbon Dioxide Level 34H, Calcium Level 9.3 CBC/BMP Laboratory Tests 07/13/19 07:30 Red Blood Count 3.79 L, Mean Corpuscular Volume 99.7 H, Mean Corpuscular Hemogl obin 31.7, Mean Corpuscular Hemoglobin Concent 31.7 L, Red Cell Distribution Width 15.9 H, Calcium Level 9.3 Microbiology Microbiology 07/12/19 Blood Culture - Preliminary, Resulted No growth after 24 hours . All specim... 07/11/19 Blood Culture - Preliminary, Resulted No growth after 24 hours . All specim... KAYCEE CARROLL MD Jul 13, 2019 10:53
--- NOTE | 2019-07-13 13:14 | IPN ---
DATE: 07/13/2019 Patient was seen and examined this morning during bedside rounds. She reports that her shortness of breath has improved and she feels that her strength has also improved slightly. The patient was able to try eating solid food for breakfast which, she was able to keep down with the aid of water but she does continue to note some difficulty with swallowing but no odynophagia. The patient was started on mouth care and saliva substitute which she feels has helped with some of her swallowing. The patient does report some increased cough, which she has noticed is more after she uses her Mucomyst and albuterol nebulizer treatment for pulmonary toilet. She has not had any productive cough. She denies any fevers or chills. No chest pain. PHYSICAL EXAMINATION: VITALS: Temperature 97.4, pulse 81, respirations 17, blood pressure 120/64, O2 sat 99% on 4 liters nasal cannula. Ins 840, 425 out, net positive 415. The patient's weight this morning was 63.2 kg. Yesterday she was 59.5 and on admission she was 55.9 kg. GENERAL: The patient is an elderly female who is lying in bed, is not in any acute respiratory distress is able to speak in complete sentences and is not using any accessory muscles for respirations. She is alert and oriented times three. HEENT: Normocephalic, atraumatic. Pupils reactive. Moist mucous membranes. NECK: Neck is supple. Trachea is midline. No palpable adenopathy. CARDIOVASCULAR: Regular rate and rhythm. Normal S1-S2. There is a loud systolic murmur noted in the left sternal border. PULMONARY: There are crackles in the bases bilaterally with some coarse breath sounds, but no wheezes or rhonchi noted. ABDOMEN: Soft, nontender, nondistended. No palpable organomegaly. LOWER EXTREMITIES: There is no significant lower extremity edema noted today. LABORATORY DATA: WBC 24.0, hemoglobin 12.0, platelets 314. Chemistry sodium is 142, potassium 4.8, chloride 103, bicarb 34, BUN 36, creatinine 1.0, glucose is 135, procalcitonin was 0.08. ASSESSMENT/PLAN: Mrs. Madsen is an 78-year female with a history of hypertension, coronary artery disease (CAD), hyperlipidemia, chronic kidney disease (CKD), diabetes, IPF with chronic hypoxemic respiratory failure who presented with complaints of weakness, decreased appetite, difficulty swallowing and some mid sternal discomfort as well as episodes of anxiety and shortness of breath. On admission the patient had slight leukocytosis however, she was afebrile. There was some initial concern for pneumonia on a chest x-ray and she was started on antibiotics. The patient was also started on steroids for possible IPF exacerbation. On her CT chest she did not have any new focal opacities or infiltrates to suggest pneumonia. Some of the previously noted ground-glass opacities on her last CT in May is improving. She also has a new pneumomediastinum noted which was not seen on her previous CT in May. There is no evidence of pneumothorax. - The patient's leukocytosis today is likely secondary to steroids. She continues to be afebrile and she did not have any new opacities noted on her imaging. Her procalcitonin today was also normal. The patient did receive Levaquin, however, would discontinue antibiotics. She does not appear to have an acute pneumonia currently. - Can continue prednisone for possible IPF exacerbation. Would taper her prednisone today to 30 mg daily and continue with a quick taper. The prednisone may also be helping with some of her appetite stimulant, but suspect if she does have an exacerbation, it is mild as she is close to her baseline respiratory status. - For her pneumomediastinum, would continue supportive measures including oxygen supplementation, pain control cough suppression if needed. Would DC her Mucomyst as it has been increasing her cough and she denies any productive cough currently. - Can continue albuterol nebulizers for bronchodilator and mucus clearance. - The patient's BNP was elevated on admission, although she does not appear grossly fluid overloaded more than her baseline. She has had increasing weight gain during her admission. Given her history of pulmonary hypertension and diastolic dysfunction, she is at risk for fluid overload. Would need to closely monitor her daily weights and her ins and outs and she may need increased Lasix p.r.n. - Continue with the nasal cannula oxygen supplementation to 4 liters a minute for the pneumomediastinum. - Continue with OFEV 100 mg twice a day. Would consider increasing her to 150 mg twice a day and monitoring her for side effects such as diarrhea. She would need to have her home medication dose adjusted, which can be done as an outpatient. - The patient was ordered for swallow eval an barium study. Will followup the results. Suspect some of her difficulty may be due to her pneumomediastinum and hiatal hernia. - Continue with PPI. - Continue with nutritional supplementation with Ensure. The patient would likely be able to benefit from a nutrition consult as well. - Will order PT for evaluation. DVT prophylaxis. Lovenox. CODE STATUS: DO NOT RESUSCITATE/DO NOT INTUBATE. MTDD
[2019-07-13] MEDS: LevoFLOXacin IV 250 MG in IV 1 EA IV SCH (18:22)
[2019-07-13] MEDS: PRAVASTATIN 20 MG TAB PO SCH (20:16)
[2019-07-13 22:00] VITALS: BP 110/59
[2019-07-14] VITALS (8 sets, daily range): BP systolic 122–154; BP diastolic 64–85
[2019-07-14 06:44] LABS: HEMATOCRIT 36.3 % (36.0-47.0); HEMOGLOBIN 11.3 g/dl (12.0-15.5); MEAN CORPUSCULAR HEMOGLOBIN 30.3 pg (27.0-33.0); MEAN CORPUSCULAR HGB CONC 31.1 g/dl (32.0-36.5); MEAN CORPUSCULAR VOLUME 97.3 fl (80.0-96.0); PLATELET COUNT, AUTOMATED 291 10^3/uL (150-450); RED BLOOD COUNT 3.73 10^6/uL (4.00-5.40); WHITE BLOOD COUNT 17.8 10^3/uL (4.0-10.0)
[2019-07-14 07:13] LABS: CALCIUM LEVEL 9.5 MG/DL (8.8-10.2); CREATININE FOR GFR 1.05 MG/DL (0.55-1.30); GLOMERULAR FILTRATION RATE 53.7 (>32); POTASSIUM SERUM 4.2 MEQ/L (3.5-5.1)
[2019-07-14] MEDS: ALBUTEROL SULFATE 2.5 MG/0.5 ML INH NEB SOLN NEB SCH ×2 (07:33→18:02)
[2019-07-14] MEDS: OFEV 100 MG PO SCH ×2 (09:06→18:10)
[2019-07-14] MEDS: FLUTICASONE PROP 0.05% NASAL SPRAY 16 GM (FLONASE) NARES SCH (09:07)
[2019-07-14] MEDS: CHLORHEXIDINE GLUCONATE 0.12 % 15ML UDC (PERIDEX ORAL RINSE) MT SCH ×2 (09:07→21:21)
[2019-07-14] MEDS: ENOXAPARIN 40 MG/0.4 ML SYRINGE (J1650) SC SCH (09:07)
[2019-07-14] MEDS: POTASSIUM CHLORIDE 10 MEQ SR TABLET PO SCH ×3 (09:07→21:20)
[2019-07-14] MEDS: CLOPIDOGREL 75 MG TAB PO SCH (09:07)
[2019-07-14] MEDS: LOSARTAN 50 MG TAB PO SCH (09:08)
[2019-07-14] MEDS: LEVOTHYROXINE 50MCG TABLET (0.05MG) PO SCH (09:08)
[2019-07-14] MEDS: **hydrALAZINE HCL** 25 MG TAB PO SCH ×2 (09:08→21:26)
[2019-07-14] MEDS: PANTOPRAZOLE 40MG TAB (PROTONIX) PO SCH (09:08)
[2019-07-14] MEDS: ASPIRIN 81 MG ENTERIC TAB PO SCH (09:08)
[2019-07-14] MEDS: FUROSEMIDE 40 MG TAB PO SCH (09:08)
[2019-07-14] MEDS: predniSONE 10 MG TAB PO SCH (09:08)
--- NOTE | 2019-07-14 14:31 | IPN ---
DATE OF SERVICE: 07/14/2019 The patient was seen and examined this morning during bedside rounds. This morning, the patient felt more weak and tremulous. She does not feel that her shortness of breath has worsened. However, she has not been out of bed and moving much so she is unclear about any dyspnea with exertion. She does continue to have some slight cough, although she does not feel it has worsened. She denies any pain with swallowing, but does continue to have some difficulty with swallowing solids and has to take frequent sips of water when she is trying to eat. The patient reports more decreased appetite today. She denies any coughing noted while eating. No fevers or chills. No increased lower extremity edema. PHYSICAL EXAMINATION: Temperature 96.6, pulse 76, respirations 16, blood pressure 124/64, oxygen sat 99% on 4 liters nasal cannula. Ins 1.5 liters, out 1.7, net negative 200 mL. Weight this morning was 56.3, yesterday she was 59.5 kg. General: The patient is an elderly female who is lying in bed and is not in any acute respiratory distress. She is able to speak in complete sentences and is not using any accessory muscles for respirations. She is alert and oriented times three. She does appear somewhat anxious. HEENT: Normocephalic, atraumatic. Pupils reactive. Moist mucous membranes. Neck is supple. Trachea is midline. No palpable adenopathy. Cardiovascular: Regular rate and rhythm. Normal S1 and S2. There is a loud systolic murmur noted in the left sternal border. Pulmonary: There are crackles bilaterally with some decreased breath sounds at the bases bilaterally, but no wheezes or rhonchi noted. Abdomen is soft, nontender, nondistended. No palpable organomegaly. Lower Extremities: There is no significant lower extremity edema noted today and no significant anasarca. LABORATORY DATA: WBC 17.8, hemoglobin 11.3, platelets 291. Chemistry: Sodium is 142, potassium 4.2, chloride is 103, bicarb 34, BUN 35, creatinine 1.05, glucose is 116. ASSESSMENT/PLAN: Mrs. Madsen is an 78-year-old female with history of hypertension, coronary artery disease (CAD), hyperlipidemia, chronic kidney disease (CKD), diabetes, idiopathic pulmonary fibrosis (IPF) with chronic hypoxemic respiratory failure who presented with complaints of weakness, decreased appetite, mid sternal discomfort and difficulty swallowing, as well as, some increased shortness of breath and anxiety. The patient was started on antibiotics for possible pneumonia and she did have leukocytosis slightly on presentation, although she was afebrile. She was also started on steroids for possible IPF exacerbation. Her CT chest, however, did not show any new focal opacities or infiltrates to suggest pneumonia. Her previously noted ground-glass opacities were improving from her last CT in May. She did have new pneumomediastinum noted which was not seen on her previous CT, but there was no evidence of pneumothorax. - The patient's leukocytosis is improving. Likely reactive secondary to her steroids. She continues to be afebrile. Her procalcitonin that was checked on admission was also normal. Would consider discontinuing Levaquin as doubt an acute infectious process currently. Her ground-glass opacities are more likely from pulmonary edema. - Can continue prednisone for possible IPF exacerbation. Would continue with tapering doses. The patient is on 30 mg today and would taper by 10 mg every 2 days until off. - Continue supportive measures for her pneumomediastinum with oxygen supplementation, pain control and cough suppression if needed. - Continue with albuterol nebulizers. - Continue to monitor the patient's ins and outs and her weight daily. She is continued on her home Lasix, but if signs of increasing fluid overload and increasing weights and decreased output, would consider increasing her Lasix for some gentle diuresis. - Continue nasal cannula oxygen supplementation. The patient is on 4 liters a minute at home, although during this admission was able to be weaned down to 2 liters a minute. Increased her to 4 liters a minute for the pneumomediastinum, but can wean down to maintain an O2 sat above 92%. - Continue with Ofev 100 mg twice a day. - Followup results of speech and swallow and her barium study for her dysphagia. Suspect some of her difficulty may be due to her pneumomediastinum and hiatal hernia. - Continue proton pump inhibitor (PPI). - Continue nutritional supplementation with Ensure. - Physical therapy (PT) for evaluation of the patient. Will follow up with their recommendations. The patient ultimately would like to travel back to [place]. She is planning to travel with a few family members in an . Deep vein thrombosis (DVT) prophylaxis. Lovenox. Code Status: DO NOT RESUSCITATE/DO NOT INTUBATE (DNR/DNI).
[2019-07-14] MEDS: LevoFLOXacin IV 250 MG in IV 1 EA IV SCH (18:09)
[2019-07-14] MEDS: ACETAMINOPHEN 650MG ER TAB (TYLENOL ARTHRITIS) PO PRN (18:26)
[2019-07-14] MEDS: PRAVASTATIN 20 MG TAB PO SCH (21:20)
[2019-07-15 01:54] VITALS: BP 121/73
[2019-07-15 05:57] VITALS: BP 142/88
[2019-07-15 07:01] LABS: HEMATOCRIT 38.3 % (36.0-47.0); MEAN CORPUSCULAR HEMOGLOBIN 30.8 pg (27.0-33.0); MEAN CORPUSCULAR HGB CONC 31.3 g/dl (32.0-36.5); MEAN CORPUSCULAR VOLUME 98.5 fl (80.0-96.0); PLATELET COUNT, AUTOMATED 297 10^3/uL (150-450); RED BLOOD COUNT 3.89 10^6/uL (4.00-5.40); WHITE BLOOD COUNT 15.2 10^3/uL (4.0-10.0)
[2019-07-15 07:32] LABS: BLOOD UREA NITROGEN 29 MG/DL (7-18); CALCIUM LEVEL 9.6 MG/DL (8.8-10.2); CARBON DIOXIDE LEVEL 33 MEQ/L (21-32); CHLORIDE LEVEL 103 MEQ/L (98-107); CREATININE FOR GFR 0.92 MG/DL (0.55-1.30); GLOMERULAR FILTRATION RATE > 60.0 (>32); GLUCOSE, FASTING 114 MG/DL (70-100); POTASSIUM SERUM 4.3 MEQ/L (3.5-5.1); SODIUM LEVEL 142 MEQ/L (136-145)
[2019-07-15] MEDS: ALBUTEROL SULFATE 2.5 MG/0.5 ML INH NEB SOLN NEB SCH (07:38)
[2019-07-15] MEDS: CHLORHEXIDINE GLUCONATE 0.12 % 15ML UDC (PERIDEX ORAL RINSE) MT SCH ×2 (10:03→21:04)
[2019-07-15] MEDS: ENOXAPARIN 40 MG/0.4 ML SYRINGE (J1650) SC SCH (10:03)
[2019-07-15] MEDS: OFEV 100 MG PO SCH ×2 (10:03→17:33)
[2019-07-15] MEDS: CLOPIDOGREL 75 MG TAB PO SCH (10:04)
[2019-07-15] MEDS: predniSONE 10 MG TAB PO SCH (10:04)
[2019-07-15] MEDS: LEVOTHYROXINE 50MCG TABLET (0.05MG) PO SCH (10:04)
[2019-07-15] MEDS: LOSARTAN 50 MG TAB PO SCH (10:04)
[2019-07-15] MEDS: POTASSIUM CHLORIDE 10 MEQ SR TABLET PO SCH ×3 (10:04→21:03)
[2019-07-15] MEDS: ACETAMINOPHEN 650MG ER TAB (TYLENOL ARTHRITIS) PO PRN ×2 (10:05→21:04)
[2019-07-15] MEDS: ASPIRIN 81 MG ENTERIC TAB PO SCH (10:05)
[2019-07-15] MEDS: FUROSEMIDE 40 MG TAB PO SCH (10:05)
[2019-07-15] MEDS: **hydrALAZINE HCL** 25 MG TAB PO SCH ×2 (10:05→21:04)
[2019-07-15] MEDS: FERROUS SULFATE 325MG TAB PO SCH (10:05)
[2019-07-15] MEDS: PANTOPRAZOLE 40MG TAB (PROTONIX) PO SCH (10:05)
[2019-07-15] MEDS: FLUTICASONE PROP 0.05% NASAL SPRAY 16 GM (FLONASE) NARES SCH (10:06)
[2019-07-15] MEDS ORDERED: LEVALBUTEROL HFA 45MCG/ACT 15 GM INHALER INH PRN (10:15)
[2019-07-15 10:23] VITALS: BP 144/89
--- NOTE | 2019-07-15 11:17 | IPN ---
DATE: 07/15/2019 The patient was seen and examined this morning during bedside rounds. This morning the patient does continue to feel some tremulousness as well as generalized weakness. She does not feel that her shortness of breath has worsened, but that is at baseline currently. She does have some dyspnea and desaturation with exertion. She continues to have some slight cough although denies any increasing cough or sputum production. Has not had any fevers or chills. Has not had any chest pains. She does continue to have some difficulty with swallowing solids and has to take frequent sips of water when she is trying to eat. She was evaluated by speech therapy and was referred for a barium swallow which she has not had done yet. PHYSICAL EXAMINATION: Vitals: Temperature 97.4, pulse 94, respirations 20, blood pressure 142/88, O2 sat 99% on 4 liters nasal cannula, weight is 56.3 kg. Ins 240 mL, out 1.4 liters, net negative 1.1 liters. GENERAL: The patient is a frail elderly female who is lying in bed and is not any acute respiratory distress. Appears mildly tremulous and anxious but is able to speak in complete sentences, is not using any accessory muscles for respirations. HEENT: Normocephalic, atraumatic. Pupils reactive. Moist mucous membranes. NECK: Supple. Trachea is midline. No palpable adenopathy. CARDIOVASCULAR: Regular rate and rhythm. Normal S1-S2. There is a loud systolic murmur noted in the left sternal border. PULMONARY: There are audible stomach sounds in the chest posteriorly and diminished breath sounds at the bases with crackles bilaterally. No wheezes or rhonchi noted. ABDOMEN: Is soft, nontender, nondistended. No palpable hepatomegaly. LOWER EXTREMITIES: There is no significant lower extremity edema or anasarca noted. LABORATORY DATA: WBC 15.2, hemoglobin 12.0, platelets 297. Chemistry - sodium is 142, potassium 4.3, chloride 103, bicarb 33, BUN 29, creatinine 0.92, glucose is 114. ASSESSMENT AND PLAN: Mrs. Madsen is an 78-year female with a past history of hypertension, coronary artery disease (CAD), hyperlipidemia, chronic kidney disease (CKD), diabetes, idiopathic pulmonary fibrosis (IPF) with chronic hypoxemic respiratory failure who presented with weakness, decreased appetite, mid sternal discomfort and difficulty swallowing as well as some anxiety and increased shortness of breath. The patient was started on antibiotics for a possible pneumonia. She did have some leukocytosis slightly on initial presentation although she was afebrile. She was also started on steroids for possible IPF exacerbation. Her CT chest, however, did not show any new focal opacities or infiltrates to suggest an infectious etiology. The previously noted ground-glass opacities were improving from her last CT in May. She did have a new pneumomediastinum noted which was not seen on her previous CT but there is no evidence of pneumothorax. - The patient's leukocytosis is improving. Likely reactive secondary to her steroids. She is afebrile and a procalcitonin on admission was also normal. Would discontinue Levaquin today as doubt acute infectious process currently. Her ground-glass opacities were more likely in the setting of pulmonary edema or from her previous viral upper respiratory infection (URI). - Can continue prednisone for possible IPF exacerbation. Will continue with taper to 20 mg tomorrow and tapering every 3 days by 10 mg until off. - Continue supportive measures for her pneumomediastinum with oxygen supplementation pain control cough suppression if needed. - we will discontinue her nebulizers as some of her tremulousness may be related to the albuterol. Would start her on Xopenex inhalers to be used as needed. The patient's Mucomyst is on hold given her pneumomediastinum and increased cough with the Mucomyst. - Continue to monitor her ins and outs and her daily weights. She is on her home Lasix but if she has signs of increasing fluid load including shortness of breath while requiring increasing oxygen supplementation or increasing weight would consider increasing her Lasix for diuresis as she does have evidence on her last echo of diastolic dysfunction and moderate pulmonary hypertension. - Continue cannula oxygen supplementation. The patient is on 4 liters a minute. Would adjust as needed to maintain O2 sat above 92%. She will likely need increasing nasal cannula supplementation with any exertion. Continue with Ofev her home medication 100 mg twice a day. - the patient was seen by speech evaluation and was recommended for a barium swallow which she is still pending. - Continue proton pump inhibitor (PPI). - Continue nutritional supplementation with Ensure. - the patient was encouraged to get out of bed to chair and to followup with physical therapy. She would likely benefit from pulmonary rehab given her chronic lung disease. Patient would like to travel back to [place] if possible. She was planning to travel with a few family members in an . Deep venous thrombosis (DVT) prophylaxis. Lovenox. Code status DO NOT RESUSCITATE/DO NOT INTUBATE.
[2019-07-15 13:42] VITALS: BP 136/86
--- NOTE | 2019-07-15 17:59 | CR ---
DATE OF CONSULTATION: 07/24/2019 STATUS OF THE PATIENT: Inpatient. CONSULTATION REPORT FOR: Hospitalist service. REASON FOR CONSULTATION: Dysphagia. HISTORY OF PRESENT ILLNESS: Nicole Amaya is an 78-year-old female with an extensive medical history including advanced pulmonary fibrosis on eight liters of oxygen, heart failure, kidney disease, a recent myocardial infarction (UT) at the end of May 2019 for which she was transferred to [facility] for further management. The patient was diuresed. I do not believe that she had any catheterization or intervention at that time, however, was felt to be in advanced heart failure. She was discharged on Plavix. The patient presents to the hospital with failure to thrive and shortness of breath. She states that she has intermittent episodes of dysphagia for solid foods, especially dry foods. Soft foods and liquids are well-tolerated and present no problem. She does state frequent heartburn and dyspeptic symptoms especially when her shortness of breath gets worse. PAST MEDICAL HISTORY: 1. Hypertension. 2. Coronary artery disease. 3. Recent [id number] myocardial infarction (UT) on 06/06/2019. 4. Pulmonary fibrosis on eight liters nasal cannula. 5. Hypothyroidism. 6. Diabetes. 7. Pulmonary hypertension. FAMILY HISTORY: Negative for colorectal carcinoma, inflammatory bowel disease. Negative for esophageal cancer. Mother is positive for rheumatoid arthritis. SOCIAL HISTORY: She is a remote smoker, has not smoked in the past 40 years. Negative for alcohol. ALLERGIES: PENICILLIN and SULFA. MEDICATIONS AT HOME: Include Plavix, aspirin, iron, Flonase, Synthroid, Lasix, losartan, omeprazole, pravastatin, prednisone, aspirin, Lasix. REVIEW OF SYSTEMS: Negative for night sweats, fevers or chills. Positive for weight loss. PULMONARY: Negative for hemoptysis. Positive for some pleuritic chest pain on deep inspiration. CARDIAC: Positive for orthopnea and dyspnea on exertion. GASTROINTESTINAL (GI): As per history of present illness (HPI). GENITOURINARY (): Negative for hematuria or dysuria. MUSCULOSKELETAL: Negative for myalgias or arthralgias. PHYSICAL EXAMINATION: Temperature 97.3, pulse 93, pulse oximetry 94% on four liters nasal cannula, respiratory rate is 20, blood pressure 136/86. GENERAL: She is awake and alert, extremely uncomfortable-appearing female in moderate respiratory distress which she claims to be baseline for her. She is unable to complete a full sentence without taking a breath. She is nontoxic in appearance, however. HEAD, EYES, EARS, NOSE AND THROAT: Grossly without abnormality. There is no mucosal pallor. No oral thrush. Neck is negative for lymphadenopathy. CHEST: Coarse breath sounds throughout with scattered wheezing. HEART: Regular rate and rhythm, S1, S2. ABDOMEN: Soft, nontender. Good bowel sounds. EXTREMITIES: Negative for edema. IMPRESSION: 1. Failure to thrive. 2. Poor appetite. 3. Dysphagia for dry foods only. 4. CT with possible Pneumomediastinum. RECOMMENDATIONS: The patient is able to swallow moist food and liquids at this time. This should be pursued as much as possible with the help of speech pathology and perhaps nutrition. The patient, at this time, is not a candidate for elective endoscopic procedure due to recent myocardial infarction and active antiplatelet therapy. In addition, she has significant respiratory compromise as a baseline and probably should not undergo endoscopic sedated procedures especially on an elective basis. RECOMMENDATIONS: 1. At this time, it is reasonable to proceed with a water soluble contrast study/Upper GI to assess dysphagia (and re eval for possible pneumomediastinum--I am somewhat dubious of this finding. Will have to review with radiology) 2. Continue soft diet and liquid diet. 3. Continue proton pump inhibitor (PPI). 4. Depending on the findings of contrast evaluation and progress over the next few days via conservative measures, further evaluations may be considered. At this time Upper Endoscopy is contraindicated with the possibility of a pneumomediastinum, In addition her recent UT and strong need for antiplatelet therapy (cannot now stop Plavix) favors non-invasive/conservative management. I will sign off at this time. Please call me on an as-needed basis. I will act on the results of contrast studies that have already been ordered by the hospitalist team and will leave further management up to the hospitalist team. Please call me on an as-needed basis. [place]
[2019-07-15 18:00] VITALS: BP 155/96
--- NOTE | 2019-07-15 18:11 | IPNPDOC ---
Date Seen The patient was seen on 07/15/19. Progress Note SUBJECTIVE: Patient was seen and examined this morning. She continues to complain of shortness of breath, although she states that it has improved from previously. She continues to complain of dysphagia. She denies any chest pain, nausea, vomiting, diarrhea, constipation. There have been no adverse events reported overnight. OBJECTIVE PHYSICAL EXAMINATION: VITAL SIGNS: Please see below. GENERAL: Awake, alert and oriented, lying comfortably in bed with nasal cannula. She does appear chronically ill HEENT:. Atraumatic, normocephalic. Nasal cannula in place. Mucous membranes do appear dry. CARDIOVASCULAR: Regular rate and rhythm, normal S1, S2, no clicks, rubs or murmurs auscultated.. RESPIRATORY: Patient has Velcro-like rales bilaterally. There is no conversational dyspnea. Patient is not using accessory muscles. She has good respiratory effort.. ABDOMINAL: Soft, nondistended, nontender to palpation throughout Positive bowel sounds in all 4 quadrants EXTREMITIES: No edema. Full apical pulses bilaterally in upper and lower extremities NEUROLOGICAL: No focal neurological deficits PSYCHOLOGICAL: Mood and affect appear appropriate LABORATORY DATA, IMAGING STUDIES, MICROBIOLOGY: Please see below. DVT prophylaxis ordered?: Lovenox ASSESSMENT AND PLAN: Patient is an 78-year-old female with a past medical history of idiopathic pulmonary fibrosis, pulmonary hypertension, chronic hypertension, chronic grade 1 diastolic dysfunction, chronic coronary disease, stage II chronic kidney disease, hypothyroidism, osteoarthritis, dyslipidemia and recent and NSTEMI secondary to congestive heart failure exacerbation who was admitted for dyspnea and possible exacerbation of pulmonary fibrosis. The patient has been improving clinically and is currently being followed by Pulmonary medicine. She is being treated for a possible IPF exacerbation. The patient has complained of dysphagia for both liquids and solids. A CT scan has demonstrated a new pneumomediastinum. PROBLEMS: 1. Dyspnea -Likely secondary to pulmonary fibrosis exacerbation. Patient is currently followed by Pulmonary Medicine. Consultation is appreciated. Patient is currently receiving PO steroids with plan to taper. She was previously on Levoquin. This has been discontinued as her shortness of breath is felt to be less likely due to pneumonia. -Patient would benefit from pulmonary rehabilitation after discharge 2. Dysphagia -Patient has complained of dysphagia to both solids and liquids. On CT imagin g she has what appears to be pneumomediastinum. She was planned to receive a barium swallow however, the etiology of her pneumomediastinum has not been determined. -Gastroenterology has been consulted and will see the patient. Consultation is greatly appreciated. The case was discussed and at this time an EGD is contraindicated due to her pneumomediastinum. Patient would benefit from an upper GI with Esophagram using a low osmolality contrast agent to assess for etiology of her pneumomediastinum -Continue with speech therapy 3. Chronic HTN -Continue patients home medications 4. CAD -Continue home medications I saw and evaluated the patient. I agree with the findings and plan of care as documented in the above note VS, I&O, 24H, Fishbone Vital Signs/I&O Vital Signs Date Time Temp Pulse Resp B/P (MAP) Pulse Ox O2 Delivery O2 Flow Rate FiO2 07/15/19 13:42 97.3 93 20 136/86 (103) 94 4.0 07/13/19 19:28 Nasal Cannula I&O- Last 24 Hours up to 6 AM 07/15/19 06:00 Intake Total 240 ml Output Total 1300 ml Balance -1060 ml Laboratory Data 24H LABS Laboratory Tests 2 07/15/19 06:46: Nucleated Red Blood Cells % (auto) 0.0, Anion Gap 6L, Glomerular Filtration Rate > 60.0, Blood Urea Nitrogen 29H, Creatinine 0.92, Sodium Level 142, Potassium Level 4.3, Chloride Level 103, Carbon Dioxide Level 33H, Calcium Level 9.6 CBC/BMP Laboratory Tests 07/15/19 06:46 Red Blood Count 3.89 L, Mean Corpuscular Volume 98.5 H, Mean Corpuscular Hemoglobin 30.8, Mean Corpuscular Hemoglobin Concent 31.3 L, Red Cell Distribution Width 15.7 H, Calcium Level 9.6 Microbiology Microbiology 07/12/19 Blood Culture - Preliminary, Resulted No Growth after 72 hours. All specime... 07/11/19 Blood Culture - Preliminary, Resulted No Growth after 72 hours. All specime... CHINTAN KULKARNI DO Jul 15, 2019 18:11 MARCIAL ANGEL MD Jul 17, 2019 10:50
[2019-07-15] MEDS: PRAVASTATIN 20 MG TAB PO SCH (21:03)
[2019-07-15 22:00] VITALS: BP 150/90
[2019-07-16 02:00] VITALS: BP 138/81
[2019-07-16 06:00] VITALS: BP 156/96
[2019-07-16 06:41] LABS: HEMATOCRIT 39.8 % (36.0-47.0); HEMOGLOBIN 12.3 g/dl (12.0-15.5); MEAN CORPUSCULAR HEMOGLOBIN 30.5 pg (27.0-33.0); MEAN CORPUSCULAR HGB CONC 30.9 g/dl (32.0-36.5); MEAN CORPUSCULAR VOLUME 98.8 fl (80.0-96.0); PLATELET COUNT, AUTOMATED 301 10^3/uL (150-450); RED BLOOD COUNT 4.03 10^6/uL (4.00-5.40); WHITE BLOOD COUNT 14.7 10^3/uL (4.0-10.0)
[2019-07-16 07:02] LABS: BLOOD UREA NITROGEN 31 MG/DL (7-18); CALCIUM LEVEL 9.1 MG/DL (8.8-10.2); CARBON DIOXIDE LEVEL 35 MEQ/L (21-32); CHLORIDE LEVEL 104 MEQ/L (98-107); GLOMERULAR FILTRATION RATE > 60.0 (>32); GLUCOSE, FASTING 131 MG/DL (70-100); POTASSIUM SERUM 4.2 MEQ/L (3.5-5.1); SODIUM LEVEL 143 MEQ/L (136-145)
[2019-07-16] MEDS: FLUTICASONE PROP 0.05% NASAL SPRAY 16 GM (FLONASE) NARES SCH (09:05)
[2019-07-16] MEDS: CHLORHEXIDINE GLUCONATE 0.12 % 15ML UDC (PERIDEX ORAL RINSE) MT SCH ×2 (09:05→20:49)
[2019-07-16] MEDS: OFEV 100 MG PO SCH ×2 (09:05→17:54)
[2019-07-16] MEDS: FUROSEMIDE 40 MG TAB PO SCH (09:05)
[2019-07-16] MEDS: LOSARTAN 50 MG TAB PO SCH (09:06)
[2019-07-16] MEDS: CLOPIDOGREL 75 MG TAB PO SCH (09:06)
[2019-07-16] MEDS: LEVOTHYROXINE 50MCG TABLET (0.05MG) PO SCH (09:06)
[2019-07-16] MEDS: PANTOPRAZOLE 40MG TAB (PROTONIX) PO SCH (09:06)
[2019-07-16] MEDS: ASPIRIN 81 MG ENTERIC TAB PO SCH (09:06)
[2019-07-16] MEDS: ENOXAPARIN 40 MG/0.4 ML SYRINGE (J1650) SC SCH (09:07)
[2019-07-16] MEDS: **hydrALAZINE HCL** 25 MG TAB PO SCH ×2 (09:07→20:48)
[2019-07-16] MEDS: POTASSIUM CHLORIDE 10 MEQ SR TABLET PO SCH ×3 (09:07→20:49)
[2019-07-16] MEDS: predniSONE 20 MG TAB PO SCH (09:07)
[2019-07-16 10:00] VITALS: BP 153/90
[2019-07-16] MEDS ORDERED: ISOVUE-300 61% 100ML VIAL (Q9967) As Ordered ONE (10:16)
--- NOTE | 2019-07-16 10:25 | IPN ---
PULMONARY PROGRESS NOTE DATE OF SERVICE: 07/16/2019 The patient was seen and examined this morning during bedside rounds. This morning, the patient reports feeling tired and that she did not have restful sleep overnight. She states she was up from midnight until 04:00 a.m. before she was able to doze off and then was awakened early in the morning. She was out of bed in the chair earlier in the morning for her breakfast, which she tolerated for about an hour and a half. She returned back to the bed, as she was feeling tired and fatigued. The patient does not feel her shortness of breath has changed. She feels that it is currently at her baseline. She does continue to have dyspnea on exertion, as well as desaturation while on her 4 liters nasal cannula. The patient continues to have a cough, although it is not productive and denies any increasing cough. She denies any chest pain. She does have some occasional heartburn symptoms and continues to have some difficulty with swallowing solids. Has not had any fevers or chills. Has not had her esophagram done yet. PHYSICAL EXAMINATION: Vital signs: Temperature 97.7, pulse 82, blood pressure 156/96, oxygen (O2) saturation 99% on 4 liters nasal cannula. Intake and output: Intake documented as 480, output documented at 425 mL. The patient does not have any weight reported for today. General: The patient is a frail elderly female who is lying in bed and in no acute respiratory distress. She appears weak but is able to speak in complete sentences and is not using any accessory muscles for respiration. HEENT: Normocephalic, atraumatic. Pupils reactive. Moist mucous membranes. Neck: Supple. Trachea is midline. No palpable adenopathy. Cardiovascular: Is regular rate and rhythm. Normal S1, S2. There is a loud systolic murmur noted in the left sternal border. Pulmonary: The patient has crackles noted bilaterally and decreased breath sounds but no wheezing or rhonchi. Abdomen is soft, nontender, nondistended. No palpable hepatomegaly. Lower extremities: There is no significant lower extremity edema or anasarca noted. LABORATORIES: WBC 14.7, hemoglobin 12.3, platelets 301. Chemistry: Sodium is 143, potassium 4.2, chloride is 104, bicarbonate 35, BUN 31, creatinine 0.90, glucose is 131. ASSESSMENT AND PLAN: Mrs. Madsen is an 78-year female with a history of hypertension, coronary artery disease (CAD), hyperlipidemia, chronic kidney disease (CKD), diabetes, IPF with chronic hypoxemic respiratory failure on nasal cannula oxygen supplementation, who presented with weakness, decreased appetite, midsternal discomfort, and difficulty swallowing, as well as some anxiety and increased shortness of breath. The patient was initially started on antibiotics for possible pneumonia, as she did have some slight leukocytosis on admission, although she was afebrile. She was also started on steroids for possible IPF exacerbation. Her CT chest did not show any new focal opacities or infiltrates, however, did suggest an infectious etiology, and her antibiotics were subsequently discontinued after a few days. She did have some improvement in her previously-noted ground-glass opacities compared to her previous CT in May and a finding of a new pneumomediastinum noted, which was not seen on a previous CT but no evidence of pneumothorax. - The patient continues to report difficulty with swallowing. She was evaluated by GI for the pneumomediastinum, although suspect it was likely due to her coughing and her pulmonary fibrosis. The patient was ordered for an esophagram, which she is still awaiting. Will followup those results. - Continue with aspiration precautions, as well as techniques for swallowing, as recommended by speech pathologist. - Continue her prednisone for possible IPF exacerbation with the tapering doses as ordered. - Continue supportive measures for her pneumomediastinum with oxygen supplementation, pain control, and cough suppression if needed. - The patient's Mucomyst was on hold, as it was causing her to have increased cough, which we want to avoid if possible with the pneumomediastinum. Her nebulizers were changed to a Xopenex inhaler, as there was some concern that the treatment was contributing to some of her tremulousness. I will continue with Xopenex as needed. - Continue with nasal cannula oxygen supplementation on 4 liters a minute with higher amounts as needed with exertion. - The patient does have evidence of deconditioning, and she would benefit from physical therapy and likely pulmonary rehabilitation after discharge. Will continue the patient to be out of bed to chair with physical therapy during the day. - Continue with Lasix daily with monitoring of her intake and output and daily weights. If she has signs of increasing fluid overload, including shortness of breath requiring increasing oxygen supplementation or increased weight, would consider increasing her Lasix for diuresis as she does have diastolic dysfunction and moderate pulmonary hypertension on her last echocardiogram and is at some risk for fluid retention. - Continue with her home medication of ofev 100 mg twice a day. - Continue proton pump inhibitor (PPI). - Continue nutritional supplementation with Ensure. The patient does report a history of decreased by mouth intake. Deep venous thrombosis (DVT). Lovenox. CODE STATUS: DO NOT RESUSCITATE (DNR)/DO NOT INTUBATE (DNI).
[2019-07-16 14:00] VITALS: BP 104/72
--- NOTE | 2019-07-16 16:06 | REP ---
SINGLE CONTRAST ESOPHAGRAM AND UPPER GI The procedure was performed under the direct supervision of Dr. Salinas. The images were reviewed with Dr. Salinas. A single view PA chest x-ray is submitted as a teacher adventure education film. There is no change compared to a previous chest x-ray performed on 07/11/2019. A 50 50 solution of Isovue 300 and water was instilled in the erect position as well as in the right and left lateral recumbent positions. During the oral and pharyngeal stages of deglutition there is laryngeal penetration. There are esophageal transport there are tertiary waves demonstrated. The esophagus is grossly normal. There is no evidence of esophagitis stricture mucosal ring. There is a moderate-sized hiatal hernia. There is gastroesophageal reflux demonstrated to above the level of the servando. The stomach is grossly normal. The rugal folds are smooth and regular. There is no evidence of gastritis neoplasm or ulcer disease. The duodenum is grossly normal. The mucosal folds are smooth and regular. There is no evidence of duodenitis pancreatitis peptic ulcer disease or neoplasm. The visualized portion of the proximal small bowel appears normal in course and caliber. Impression: 1. Laryngeal penetration. 2. Tertiary waves. No extraluminal contrast seen. 3. There is a moderate-sized hiatal hernia with gastroesophageal reflux demonstrated to above the level of the servando. 0.7 minutes of fluoroscopy time was utilized for this procedure. The Electronically Signed by DION Garcia 07/16/2019 03:39 P Electronically Signed by Adam Salinas MD 07/16/2019 03:56 P
--- NOTE | 2019-07-16 17:29 | IPNPDOC ---
Date Seen The patient was seen on 07/16/19. Progress Note SUBJECTIVE: Patient was seen and examined this morning. She currently has no new complaints. The patient does have shortness of breath. She states this improved. She now states that she has dysphagia only to solids. She denies chest pain, nausea, vomiting, diarrhea, constipation. There were no adverse events reported overnight. Patient is supposed to be working with physical therapy however, she has been somewhat resistant. OBJECTIVE PHYSICAL EXAMINATION: VITAL SIGNS: Please see below. GENERAL: Awake, alert and oriented, lying in bed with nasal cannula in place, appears in no acute distress HEENT: Atraumatic, normocephalic. Eyes are nonicteric. Trachea is midline. Nasal cannula in place CARDIOVASCULAR:. Normal S1, S2, regular rate and rhythm. No clicks, rubs or murmurs. RESPIRATORY: Patient has continued Velcro-like rales bilaterally. She is not using accessory muscles. There is no conversational dyspnea. ABDOMINAL:. Soft, nondistended, nontender to palpation in all 4 quadrants. Normoactive bowel sounds throughout EXTREMITIES:. No edema. Full and equal pulses in bilateral upper and lower extremities NEUROLOGICAL:, No Focal neurological deficits PSYCHOLOGICAL: Mood and affect appear appropriate LABORATORY DATA, IMAGING STUDIES, MICROBIOLOGY: Please see below. DVT prophylaxis ordered?: Lovenox ASSESSMENT AND PLAN: Patient is an 78-year-old female with a past medical his tory of idiopathic pulmonary fibrosis, pulmonary hypertension, chronic hypertension, chronic right grade 1 diastolic dysfunction, coronary artery disease, stage II chronic kidney disease, hypothyroidism, osteoarthritis, dyslipidemia and recent non-ST elevated myocardial infarction secondary congesti ve heart failure exacerbation who was admitted for dyspnea, possible exacerbation of pulmonary fibrosis. The patient has shown clinical improvement and is currently being followed by pulmonary medicine. She is being treated for possible idiopathic pulmonary fibrosis exacerbation. Patient has stated complaint of dysphagia. At first, both liquids and solids. However, early just solids. Patient's CT scan had demonstrated a new mediastinum which is a new finding from previous CT scans. Patient had received a upper GI and esophagram today which was essentially normal. The cause of her new mediastinum is likely secondary to idiopathic point fibrosis and chronic cough. The patient would benefit from pulmonary rehabilitation, however, states that she wants to go to [place] when she is discharged. PROBLEMS: 1. Dyspnea -Secondary to pulmonary fibrosis exacerbation. Patient is followed by pulmonary medicine. Consultation is appreciated. Patient is continued on her steroid taper. Patient has stated that her first breath has improved. -Patient would benefit from pulmonary rehabilitation after discharge. Physical therapy has seen the patient, however, she has difficulty participating as she gets tired quickly. The patient would benefit from rehabilitation. -Patient stated that once she is discharged would like to go to [place]. 2. Dysphagia -Patient complaint dysphagia to both solids and liquids. However, today she is stating that her dysphagia is only to solids. A CT imaging. Previously she had demonstrated new mediastinum, which was a new finding. She has received a upper GI with sonogram today which was essentially normal. Because of her newly mediastinum is likely secondary to her idiopathic pulmonary fibrosis and chronic cough and not related to a small esophageal perforation. -Gastroenterology was consulted and has seen the patient. Consultation really appreciated. At this time. Gastroenterology does not feel an EGD is necessary due to her new mediastinum. If she were to get this, she would need cardiac clearance first. -Patient will be continued with speech therapy 3. Chronic hypertension -Currently controlled. Will continue patient's home medications 4. Coronary artery disease with history of non-ST elevated myocardial infarction -Patient is continued on home medications, currently stable. DISPOSITION: Patient and offered options of palliative care, however, states that she would not be staying in the area. She would like to go [place] upon discharge. I saw and evaluated the patient. I agree with the findings and plan of care as documented in the above note VS, I&O, 24H, Fishbone Vital Signs/I&O Vital Signs Date Time Temp Pulse Resp B/P (MAP) Pulse Ox O2 Delivery O2 Flow Rate FiO2 07/16/19 14:00 98.6 110 20 104/72 (83) 97 4.0 07/13/19 19:28 Nasal Cannula I&O- Last 24 Hours up to 6 AM 07/16/19 06:00 Intake Total 480 ml Output Total 525 ml Balance -45 ml Laboratory Data 24H LABS Laboratory Tests 2 07/16/19 06:23: Nucleated Red Blood Cells % (auto) 0.1H, Anion Gap 4L, Glomerular Filtration Rate > 60.0, Blood Urea Nitrogen 31H, Creatinine 0.90, Sodium Level 143, Potassium Level 4.2, Chloride Level 104, Carbon Dioxide Level 35H, Calcium Level 9.1 CBC/BMP Laboratory Tests 07/16/19 06:23 Red Blood Count 4.03, Mean Corpuscular Volume 98.8 H, Mean Corpuscular Hemoglobin 30.5, Mean Corpuscular Hemoglobin Concent 30.9 L, Red Cell Distribution Width 15.5 H, Calcium Level 9.1 Microbiology Microbiology 07/12/19 Blood Culture - Preliminary, Resulted No Growth after 72 hours. All specime... 07/11/19 Blood Culture - Preliminary, Resulted No Growth after 72 hours. All specime... CHINTAN KULKARNI DO Jul 16, 2019 17:29 MARCIAL ANGEL MD Jul 17, 2019 10:57
[2019-07-16 18:00] VITALS: BP 143/81
[2019-07-16] MEDS: ACETAMINOPHEN 650MG ER TAB (TYLENOL ARTHRITIS) PO PRN (20:49)
[2019-07-16] MEDS: PRAVASTATIN 20 MG TAB PO SCH (20:49)
[2019-07-16 21:39] VITALS: BP 137/82
[2019-07-17 06:32] LABS: HEMATOCRIT 39.6 % (36.0-47.0); HEMOGLOBIN 12.3 g/dl (12.0-15.5); MEAN CORPUSCULAR HEMOGLOBIN 30.7 pg (27.0-33.0); MEAN CORPUSCULAR HGB CONC 31.1 g/dl (32.0-36.5); MEAN CORPUSCULAR VOLUME 98.8 fl (80.0-96.0); PLATELET COUNT, AUTOMATED 268 10^3/uL (150-450); RED BLOOD COUNT 4.01 10^6/uL (4.00-5.40); WHITE BLOOD COUNT 13.4 10^3/uL (4.0-10.0)
[2019-07-17 06:35] VITALS: BP 136/75
[2019-07-17 06:57] LABS: BLOOD UREA NITROGEN 32 MG/DL (7-18); CALCIUM LEVEL 9.3 MG/DL (8.8-10.2); CARBON DIOXIDE LEVEL 36 MEQ/L (21-32); CHLORIDE LEVEL 104 MEQ/L (98-107); CREATININE FOR GFR 0.94 MG/DL (0.55-1.30); GLOMERULAR FILTRATION RATE > 60.0 (>32); GLUCOSE, FASTING 129 MG/DL (70-100); POTASSIUM SERUM 4.3 MEQ/L (3.5-5.1); SODIUM LEVEL 144 MEQ/L (136-145)
[2019-07-17] MEDS: FUROSEMIDE 40 MG TAB PO SCH (08:24)
[2019-07-17] MEDS: ENOXAPARIN 40 MG/0.4 ML SYRINGE (J1650) SC SCH (08:24)
[2019-07-17] MEDS: CHLORHEXIDINE GLUCONATE 0.12 % 15ML UDC (PERIDEX ORAL RINSE) MT SCH ×2 (08:24→20:25)
[2019-07-17] MEDS: PANTOPRAZOLE 40MG TAB (PROTONIX) PO SCH (08:25)
[2019-07-17] MEDS: POTASSIUM CHLORIDE 10 MEQ SR TABLET PO SCH ×3 (08:25→20:24)
[2019-07-17] MEDS: LOSARTAN 50 MG TAB PO SCH (08:25)
[2019-07-17] MEDS: LEVOTHYROXINE 50MCG TABLET (0.05MG) PO SCH (08:25)
[2019-07-17] MEDS: **hydrALAZINE HCL** 25 MG TAB PO SCH ×2 (08:25→20:24)
[2019-07-17] MEDS: CLOPIDOGREL 75 MG TAB PO SCH (08:25)
[2019-07-17] MEDS: predniSONE 20 MG TAB PO SCH (08:25)
[2019-07-17] MEDS: ASPIRIN 81 MG ENTERIC TAB PO SCH (08:25)
[2019-07-17] MEDS: FLUTICASONE PROP 0.05% NASAL SPRAY 16 GM (FLONASE) NARES SCH (08:26)
[2019-07-17] MEDS: OFEV 100 MG PO SCH ×2 (09:00→20:25)
[2019-07-17 10:00] VITALS: BP 121/73
--- NOTE | 2019-07-17 11:16 | IPN ---
DATE: 07/17/2019 The patient was seen and examined this morning during bedside rounds. The patient reports she was able to have a more restful sleep overnight and this morning she feels stronger and not as weak. She was able to be out of bed walking to the bathroom and did not feel that she had significant dyspnea at that time. The patient feels she may be able to ambulate with physical therapy if she is able to take breaks when she does feel more fatigued and short of breath. The patient continues to report her shortness of breath has been improving slowly. She feels the tremulousness has also improved today. She continues to have an occasional cough, although to is not productive and has not been worsening. She has no chest pain. She continues to have some difficulty with swallowing, but she did have her esophagram done yesterday and she has been seen by speech and swallow therapist with swallowing exercises being given to her. There are also planning to change her food to pureed to see if that will help as well. She has not had any fevers or chills. No increased lower extremity edema. No nausea or vomiting. PHYSICAL EXAMINATION: Temperature 97.2, pulse 86, respirations 20, blood pressure 136/75, O2 95% on 2 inches nasal cannula. General: The patient is a thin, elderly female who is lying in bed in no acute respiratory distress. She appears stronger today and is able to speak in complete sentences and is not using any accessory muscles for respiration. HEENT: Normocephalic, atraumatic. Pupils reactive. Moist mucous membranes. Neck: Supple. Trachea is midline. No palpable adenopathy. Cardiovascular: Regular rate and rhythm. Normal S1, S2. There is a loud systolic murmur noted at the left sternal border. Pulmonary: The patient has crackles noted bilaterally and diminished breath sounds but not wheezing or rhonchi. Abdomen: Soft, nontender, nondistended. No palpable hepatomegaly. Lower extremities: There is no significant lower extremity edema noted or anasarca. LABORATORY DATA: WBC 13.4, hemoglobin 12.3, platelets 268. Chemistry: Sodium is 144, potassium 4.3, chloride 104, bicarbonate 36, BUN 32, creatinine 0.94, glucose 129. IMAGING STUDIES: Sonogram showed laryngeal penetration and evidence of a hiatal hernia with gastroesophageal reflux disease above the level of servando. No evidence of any perforation. ASSESSMENT AND PLAN: This is an 78-year female with history of hypertension, coronary artery disease, hyperlipidemia, chronic kidney disease, diabetes, idiopathic pulmonary fibrosis (IPF) with chronic hypoxemic respiratory failure on nasal cannula supplementation who presented with weakness, decreased appetite, midsternal discomfort and some difficulty swallowing, as well as anxiety and increased shortness of breath. The patient was initially on antibiotics for possible pneumonia, as well as steroids for possible IPF exacerbation. Her CT chest did not show any new focal opacities or infiltrates and she has been afebrile. Her antibiotics were subsequently discontinued after a few days as there did not appear to be in acute infectious process in her lungs. The patient was also noted to have some improvement in her previously noted ground-glass opacities on this recent CT compared to her previous CT in May. There was however a finding of a pneumomediastinum, which was not seen on previous CT but no evidence of pneumothorax. - The patient was evaluated by GI for the pneumomediastinum, although suspect it was likely due to her coughing and her pulmonary fibrosis and not from any esophageal tears. She did have an esophagram done, which did not show any evidence of esophageal tears as well. There was no evidence of aspiration but patient continues to have some difficulty with swallowing. - Will continue with aspiration precautions, as well as following up techniques for swallowing exercises as per the speech pathologist. Her diet is also been changed too, which may also help. - Continue head of bed elevation for aspiration precautions. - Continue with prednisone with the tapering doses as ordered for her possible IPF exacerbation. - Continue supportive measures for pneumomediastinum with oxygen, pain control and cough suppression if needed. will repeat CXR today to monitor. - Continue with her Xopenex inhaler as needed. The patient can be discharged with Xopenex as needed for increased shortness of breath, as well as Mucomyst as needed for pulmonary toilet. - Continue with Lasix. Suspect her ground-glass opacities at her previous CT may have been due to a component of pulmonary edema, as well as from possible viral upper respiratory infection. The patient does not appear to be fluid overloaded at this time; however, she has not been having strict monitoring of her ins and outs or daily weights. Would monitor and if there are signs of increasing fluid overload, including shortness of breath, increasing oxygen requirements or increasing weight, we will consider giving her additional doses of Lasix as needed. - Continue with nasal cannula oxygen supplementation and wean down as needed to maintain O2 sat above 90%. The patient has been weaned down to 2 liters nasal cannula but suspect she will need a significantly higher amounts of supplemental oxygen with exertion. - Continue with PT and their recommendations as she does have significant deconditioning. She would likely benefit from pulmonary rehab after discharge; however, the patient is planning to travel back to [place]. - Continue with a Ofev 100 mg twice a day. Would increase her to 150 mg twice a day as an outpatient if tolerating. - Continue proton pump inhibitor. - Continue nutritional supplementation with Ensure - Deep vein thrombosis (DVT) prophylaxis. CODE STATUS: DO NOT RESUSCITATE, DO NOT INTUBATE. The patient can followup with me on an outpatient basis; however, the patient is planning to return to [place] as soon as possible. She does know that she can call us for an appointment if needed when she is discharged from the hospital. Please do not hesitate to call if any further questions or concerns. [place]
--- NOTE | 2019-07-17 11:17 | IPNPDOC ---
Date Seen The patient was seen on 07/17/19. Progress Note SUBJECTIVE: Patient was seen and examined this morning. She currently has no new complaints. States that she is feeling better than she did previously. She continues to admit to dysphagia to solids. She states that she does well with liquids if she takes them and slow slips. Patient is denying any chest pain, nausea, vomiting, diarrhea or constipation. There were no adverse events reported overnight.. She has continued to work with physical therapy. Patient is planned to be discharged to rehabilitation tomorrow. OBJECTIVE PHYSICAL EXAMINATION: VITAL SIGNS: Please see below. GENERAL: Awake, alert and oriented, lying in bed comfortably with nasal cannula in place, appears in no acute distress HEENT:. Atraumatic, normocephalic. Eyes are nonicteric. Trachea is midline. Nasal cannula is in place CARDIOVASCULAR:. Normal S1, S2, regular rate and rhythm. No clicks, rubs or murmurs. RESPIRATORY: Continued Velcro-like rales bilaterally. No accessory muscle use. No conversational dyspnea. ABDOMINAL: Soft, nondistended, nontender to palpation in all 4 quadrants. Normal active bowel sounds throughout EXTREMITIES: No edema. Full and equal pulses in bilateral upper and lower extremities NEUROLOGICAL: No focal neurological deficits PSYCHOLOGICAL:. Mood and Affect appear appropriate LABORATORY DATA, IMAGING STUDIES, MICROBIOLOGY: Please see below. DVT prophylaxis ordered?: Lovenox ASSESSMENT AND PLAN: Patient is an 78-year-old female with a past medical history of idiopathic pulmonary fibrosis, pulmonary hypertension, chronic hypertension, chronic right grade 1 diastolic dysfunction, coronary artery disease, stage II chronic kidney disease, hypothyroidism, osteoarthritis, his lipidemia and recent non-ST elevated myocardial infarction secondary to some heart failure exacerbation who was admitted for dyspnea secondary to possible exacerbation of pulmonary fibrosis. Patient continued to show clinical improvement and is currently being followed pulmonary medicine. She is being treated for possible idiopathic pulmonary fibrosis exacerbation and is currently on a prednisone taper. Patient had complained of dysphagia and had received a upper GI and esophagram with a low osmolality contrast agents due to her finding a pneumomediastinum. Her esophagram findings were essentially normal with findings of laryngeal penetration tertiary waves and hiatal hernia, suggesting likely gastroesophageal reflux. 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 Patient is planned for discharge to rehabilitation tomorrow. PROBLEMS: 1. Dyspnea -Patient's dyspnea was likely secondary to a pulmonary fibrosis exacerbation. She has been followed by pulmonary medicine while inpatient. Consultation is greatly appreciated. Patient is currently on a steroid taper. Other patient to be discharged to rehabilitation tomorrow. Her steroid taper will be continued on discharge as recommended by pulmonary medicine. 2. Dysphasia: -Patient had complained of dysphasia originally to both solids and liquids. However, currently she states she only has difficulty with solids. She had a pneumomediastinum demonstrated on chest CT, which was a new finding. An upper GI and esophagram with low osmolality contrast was ordered. This has resulted essentially normal. She did have findings of laryngeal penetration tertiary waves and a hiatal hernia. The results were discussed with gastroenterology, consultation is appreciated., Patient's imaging finding are consistent with gastroesophageal reflux from her hiatal hernia. Recommendations for twice a day dosing of her proton pump inhibitor on discharge. 3. Chronic hypertension: -Currently controlled. Will continue home medications 4. , Coronary artery disease with history of non-ST elevated myocardial infarction -Patient is continued home medications. Currently stable DISPOSITION: Patient is planned for discharge to rehabilitation tomorrow. I saw and evaluated the patient. I agree with the findings and plan of care as documented in the above note VS, I&O, 24H, Fishbone Vital Signs/I&O Vital Signs Date Time Temp Pulse Resp B/P (MAP) Pulse Ox O2 Delivery O2 Flow Rate FiO2 07/17/19 08:25 136/75 07/17/19 06:35 97.2 86 20 95 07/16/19 21:39 2.0 07/13/19 19:28 Nasal Cannula I&O- Last 24 Hours up to 6 AM 07/17/19 06:00 Intake Total 420 ml Output Total 210 ml Balance 210 ml Laboratory Data 24H LABS Laboratory Tests 2 07/17/19 06:22: Nucleated Red Blood Cells % (auto) 0.2H, Anion Gap 4L, Glomerular Filtration Rate > 60.0, Blood Urea Nitrogen 32H, Creatinine 0.94, Sodium Level 144, Potassium Level 4.3, Chloride Level 104, Carbon Dioxide Level 36H, Calcium Level 9.3 CBC/BMP Laboratory Tests 07/17/19 06:22 Red Blood Count 4.01, Mean Corpuscular Volume 98.8 H, Mean Corpuscular Hemoglobin 30.7, Mean Corpuscular Hemoglobin Concent 31.1 L, Red Cell Distribut ion Width 15.4 H, Calcium Level 9.3 Microbiology Microbiology 07/12/19 Blood Culture - Final, Complete NO GROWTH AFTER 5 DAYS 07/11/19 Blood Culture - Final, Complete NO GROWTH AFTER 5 DAYS CHINTAN KULKARNI DO Jul 17, 2019 11:17 MARCIAL ANGEL MD Jul 20, 2019 11:24
--- NOTE | 2019-07-17 11:54 | REP ---
Portable chest x-ray: Single view. History: Pneumomediastinum Comparison chest x-ray: July 11, 2019. Findings: There is a fairly large hiatal hernia behind the heart. There are clips in right upper quadrant of the abdomen. There is a diffuse interstitial fibrosis pattern again noted in the lung plascencia. There is a small amount of air along the right lateral margin of the trachea which may be residual pneumomediastinum. There is no evidence of pneumothorax. Electronically Signed by Irving Monte MD 07/17/2019 02:05 P
[2019-07-17 12:00] VITALS: BP 125/77
[2019-07-17 14:00] VITALS: BP 125/77
[2019-07-17 18:00] VITALS: BP 132/81
[2019-07-17] MEDS: ACETAMINOPHEN 650MG ER TAB (TYLENOL ARTHRITIS) PO PRN (19:45)
[2019-07-17 20:19] VITALS: BP 128/84
[2019-07-17] MEDS: PRAVASTATIN 20 MG TAB PO SCH (20:24)
[2019-07-18 06:03] LABS: MEAN CORPUSCULAR HEMOGLOBIN 31.4 pg (27.0-33.0); MEAN CORPUSCULAR HGB CONC 31.6 g/dl (32.0-36.5); MEAN CORPUSCULAR VOLUME 99.5 fl (80.0-96.0); PLATELET COUNT, AUTOMATED 245 10^3/uL (150-450); RED BLOOD COUNT 3.82 10^6/uL (4.00-5.40); WHITE BLOOD COUNT 14.3 10^3/uL (4.0-10.0)
[2019-07-18 06:30] VITALS: BP 173/79
[2019-07-18 06:30] LABS: CALCIUM LEVEL 9.1 MG/DL (8.8-10.2); CREATININE FOR GFR 0.96 MG/DL (0.55-1.30); GLOMERULAR FILTRATION RATE 59.5 (>32); POTASSIUM SERUM 4.5 MEQ/L (3.5-5.1)
[2019-07-18 06:42] VITALS: BP 158/88
[2019-07-18] MEDS: LOSARTAN 50 MG TAB PO SCH (08:28)
[2019-07-18] MEDS: PANTOPRAZOLE 40MG TAB (PROTONIX) PO SCH (08:28)
[2019-07-18] MEDS: CHLORHEXIDINE GLUCONATE 0.12 % 15ML UDC (PERIDEX ORAL RINSE) MT SCH ×2 (08:28→20:12)
[2019-07-18] MEDS: **hydrALAZINE HCL** 25 MG TAB PO SCH ×2 (08:28→20:13)
[2019-07-18] MEDS: ENOXAPARIN 40 MG/0.4 ML SYRINGE (J1650) SC SCH (08:28)
[2019-07-18] MEDS: FERROUS SULFATE 325MG TAB PO SCH (08:29)
[2019-07-18] MEDS: POTASSIUM CHLORIDE 10 MEQ SR TABLET PO SCH ×3 (08:29→20:13)
[2019-07-18] MEDS: ASPIRIN 81 MG ENTERIC TAB PO SCH (08:29)
[2019-07-18] MEDS: predniSONE 20 MG TAB PO SCH (08:29)
[2019-07-18] MEDS: LEVOTHYROXINE 50MCG TABLET (0.05MG) PO SCH (08:29)
[2019-07-18] MEDS: FUROSEMIDE 40 MG TAB PO SCH (08:29)
[2019-07-18] MEDS: CLOPIDOGREL 75 MG TAB PO SCH (08:29)
[2019-07-18] MEDS: OFEV 100 MG PO SCH ×2 (08:30→17:01)
[2019-07-18] MEDS: FLUTICASONE PROP 0.05% NASAL SPRAY 16 GM (FLONASE) NARES SCH (08:30)
--- NOTE | 2019-07-18 15:05 | IPNPDOC ---
Date Seen The patient was seen on 07/18/19. Progress Note SUBJECTIVE: Patient was seen and examined this morning. She currently has no new complaints. There has been no adverse events reported overnight. The patient continues to have dysphagia with solids. She states that she is able to swallow liquids and foods that are not dry. Patient is planned to go to [facility] rehabilitation on Sunday. OBJECTIVE PHYSICAL EXAMINATION: VITAL SIGNS: Please see below. GENERAL: Awake, alert and oriented, lying in bed comfortably with nasal cannula in place, appears in no acute distress HEENT:. Atraumatic, normocephalic. Eyes are nonicteric. Trachea is midline. Nasal cannula is in place CARDIOVASCULAR:. Normal S1, S2, regular rate and rhythm. No clicks, rubs or murmurs. RESPIRATORY: Velcro-like rales bilaterally. No accessory muscle use. No conversational dyspnea. ABDOMINAL: Soft, nondistended, nontender to palpation in all 4 quadrants. Normal active bowel sounds throughout EXTREMITIES: No edema. Full and equal pulses in bilateral upper and lower extremities NEUROLOGICAL: No focal neurological deficits LABORATORY DATA, IMAGING STUDIES, MICROBIOLOGY: Please see below. DVT prophylaxis ordered?: Lovenox ASSESSMENT AND PLAN: Patient is an 78-year-old female with a past medical history of idiopathic pulmonary fibrosis, pulmonary hypertension, chronic hypertension, chronic right grade 1 diastolic dysfunction, coronary artery disease, stage II chronic kidney disease, hypothyroidism, osteoarthritis, his lipidemia and recent non-ST elevated myocardial infarction secondary to some heart failure exacerbation who was admitted for dyspnea secondary to possible exacerbation of pulmonary fibrosis. Patient continued to show clinical improvement and is currently being followed pulmonary medicine. She is being treated for possible idiopathic pulmonary fibrosis exacerbation and is currently on a prednisone taper. Patient had complained of dysphagia and had received a upper GI and esophagram with a low osmolality contrast agents due to her finding a pneumomediastinum. Her esophagram findings were essentially normal with findings of laryngeal penetration tertiary waves and hiatal hernia, suggesting likely gastroesophageal reflux. Recommendations for patient to be placed on proton pump inhibitor twice a day on discharge. Patient is planned for discharge to rehabilitation at [facility] on Sunday PROBLEMS: 1., Dyspnea: -Patient's dyspnea has improved since her admission. [place] likely to be secondary to pulmonary fibrosis exacerbation. Patient is followed by pulmonary medicine and is currently receiving a steroid taper. Consultation is greatly appreciated. Patient is planned to be discharged to rehabilitation at [facility] on Sunday. Patient will be continued on her steroid taper per recommendations by pulmonary medicine 2.. Dysphasia: -Patient has dysphagia to solids. She's been evaluated by gastroenterology. She had an upper GI and esophagram completed which demonstrated likely reflux. Patient will be started on a proton pump inhibitor. 3. Pneumomediastinum -Patient had new mediastinal and CT imaging, which was felt to be new. This was evaluated with an esophagram which was essentially normal. His weight at her pneumomediastinum is likely secondary to her pulmonary fibrosis 4. Hypertension -Currently controlled. Continue home medications 5. Coronary artery disease with history of non-ST elevated myocardial infarction -Continue home medications DISPOSITION: Patient is planned to be discharged to rehabilitation at [facility] on Sunday. I saw and evaluated the patient. I agree with the findings and plan of care as documented in the above note VS, I&O, 24H, Fishbone Vital Signs/I&O Vital Signs Date Time Temp Pulse Resp B/P (MAP) Pulse Ox O2 Delivery O2 Flow Rate FiO2 07/18/19 09:00 3.0 07/18/19 08:28 158/88 07/18/19 06:30 97.9 82 20 92 07/13/19 19:28 Nasal Cannula I&O- Last 24 Hours up to 6 AM 07/18/19 06:00 Intake Total 1260 ml Output Total 200 ml Balance 1060 ml Laboratory Data 24H LABS Laboratory Tests 2 07/18/19 05:37: Nucleated Red Blood Cells % (auto) 0.1H, Anion Gap 3L, Glomerular Filtration Rate 59.5, Blood Urea Nitrogen 32H, Creatinine 0.96, Sodium Level 143, Potassium Level 4.5, Chloride Level 104, Carbon Dioxide Level 36H, Calcium Level 9.1 CBC/BMP Laboratory Tests 07/18/19 05:37 Red Blood Count 3.82 L, Mean Corpuscular Volume 99.5 H, Mean Corpuscular Hemoglobin 31.4, Mean Corpuscular Hemoglobin Concent 31.6 L, Red Cell Distribution Width 15.2 H, Calcium Level 9.1 Microbiology Microbiology 07/12/19 Blood Culture - Final, Complete NO GROWTH AFTER 5 DAYS 07/11/19 Blood Culture - Final, Complete NO GROWTH AFTER 5 DAYS CHINTAN KULKARNI DO Jul 18, 2019 15:05 MARCIAL ANGEL MD Jul 20, 2019 11:39
[2019-07-18] MEDS ORDERED: LORazepam 0.5 MG TAB PO ONE ×2 (18:00→21:00)
[2019-07-18] MEDS: ACETAMINOPHEN 650MG ER TAB (TYLENOL ARTHRITIS) PO PRN (20:12)
[2019-07-18] MEDS: PRAVASTATIN 20 MG TAB PO SCH (20:12)
[2019-07-18 22:05] VITALS: BP 127/84
[2019-07-19 06:10] VITALS: BP 130/85
[2019-07-19 07:28] LABS: HEMATOCRIT 41.2 % (36.0-47.0); MEAN CORPUSCULAR HEMOGLOBIN 30.8 pg (27.0-33.0); MEAN CORPUSCULAR HGB CONC 31.6 g/dl (32.0-36.5); MEAN CORPUSCULAR VOLUME 97.6 fl (80.0-96.0); PLATELET COUNT, AUTOMATED 279 10^3/uL (150-450); RED BLOOD COUNT 4.22 10^6/uL (4.00-5.40); WHITE BLOOD COUNT 19.7 10^3/uL (4.0-10.0)
[2019-07-19 07:46] LABS: BLOOD UREA NITROGEN 35 MG/DL (7-18); CALCIUM LEVEL 9.5 MG/DL (8.8-10.2); CARBON DIOXIDE LEVEL 36 MEQ/L (21-32); CHLORIDE LEVEL 100 MEQ/L (98-107); CREATININE FOR GFR 0.94 MG/DL (0.55-1.30); GLOMERULAR FILTRATION RATE > 60.0 (>32); GLUCOSE, FASTING 136 MG/DL (70-100); SODIUM LEVEL 140 MEQ/L (136-145)
[2019-07-19] MEDS: **hydrALAZINE HCL** 25 MG TAB PO SCH ×2 (08:14→20:56)
[2019-07-19] MEDS: CHLORHEXIDINE GLUCONATE 0.12 % 15ML UDC (PERIDEX ORAL RINSE) MT SCH ×2 (08:14→20:56)
[2019-07-19] MEDS: ASPIRIN 81 MG ENTERIC TAB PO SCH (08:14)
[2019-07-19] MEDS: POTASSIUM CHLORIDE 10 MEQ SR TABLET PO SCH ×3 (08:14→20:56)
[2019-07-19] MEDS: PANTOPRAZOLE 40MG TAB (PROTONIX) PO SCH (08:14)
[2019-07-19] MEDS: CLOPIDOGREL 75 MG TAB PO SCH (08:14)
[2019-07-19] MEDS: FLUTICASONE PROP 0.05% NASAL SPRAY 16 GM (FLONASE) NARES SCH (08:15)
[2019-07-19] MEDS: LOSARTAN 50 MG TAB PO SCH (08:15)
[2019-07-19] MEDS: ENOXAPARIN 40 MG/0.4 ML SYRINGE (J1650) SC SCH (08:15)
[2019-07-19] MEDS: LEVOTHYROXINE 50MCG TABLET (0.05MG) PO SCH (08:15)
[2019-07-19] MEDS: predniSONE 10 MG TAB PO SCH (08:15)
[2019-07-19] MEDS: OFEV 100 MG PO SCH ×2 (08:16→17:03)
[2019-07-19] MEDS: FUROSEMIDE 40 MG TAB PO SCH (08:16)
--- NOTE | 2019-07-19 10:00 | IPNPDOC ---
Date Seen The patient was seen on 07/19/19. Progress Note SUBJECTIVE: Patient was seen and examined this morning. She currently has no new complaints. There have been no adverse events reported overnight. Patient states that her breathing has improved. She denies any chest pain. She still has some difficulty with swallowing dry and solid foods. OBJECTIVE PHYSICAL EXAMINATION: VITAL SIGNS: Please see below. GENERAL: Patient is awake, alert and oriented. does not appear to be in acute distress, lying in bed comfortably HEENT: Atraumatic, normocephalic. Eyes are nonicteric. Trachea is midline. Mucous membranes are pink and moist.. Nasal cannula in place CARDIOVASCULAR:. Normal S1, S2, regular rate and rhythm with occasional ectopic beat. No clicks, rubs or murmurs. Capillary refills less than 2 seconds. RESPIRATORY:. Velcro-like rales bilaterally. No accessory muscle use ABDOMINAL: Soft, nondistended, nontender to palpation in all 4 quadrants. No rebound tenderness or guarding. No hernias or bruising EXTREMITIES: No edema, 2+ posterior tibial pulses 2+ radial pulses bilaterally. NEUROLOGICAL:. No focal neurological deficits PSYCHOLOGICAL: Mood and affect appear appropriate LABORATORY DATA, IMAGING STUDIES, MICROBIOLOGY: Please see below. DVT prophylaxis ordered?: Lovenox ASSESSMENT AND PLAN: Patient is an 78-year-old female with a past medical history of idiopathic pulmonary fibrosis, pulmonary hypertension, chronic hypertension, chronic right grade 1 diastolic dysfunction, coronary artery disease, stage II chronic kidney disease, hypothyroidism, osteoarthritis, his lipidemia and recent non-ST elevated myocardial infarction secondary to some heart failure exacerbation who was admitted for dyspnea secondary to possible exacerbation of pulmonary fibrosis. Patient continued to show clinical improvement and is currently being followed pulmonary medicine. She is being treated for possible idiopathic pulmonary fibrosis exacerbation and is currently on a prednisone taper. Patient had complained of dysphagia and had received a upper GI and esophagram with a low osmolality contrast agents due to her finding a pneumomediastinum. Her esophagram findings were essentially normal with findings of laryngeal penetration tertiary waves and hiatal hernia, suggesting likely gastroesophageal reflux. Recommendations for patient to be placed on proton pump inhibitor twice a day on discharge. Patient is planned for discharge to rehabilitation at [facility] on Sunday PROBLEMS: 1., Dyspnea: -Patient's shortness of breath has returned to her baseline. Plan is for patient to be discharged to rehabilitation at [facility] [place] she is to be continued on her steroid taper per recommendations by pulmonary medicine 2.. Dysphasia: -Patient has dysphagia to solids. She's been evaluated by gastroenterology. She had an upper GI and esophagram completed which demonstrated likely reflux. Patient be continued on proton pump inhibitor. Patient was continued on diet per speech therapy 3. Generalized Anxiety -Patient has had reported anxiety. This may be due to Generalized anxiety or due to difficulty breathing at night. She has been given Ativan for her anxiety however, this medication should be avoided as it can lead to further respiratory suppression. -Patient will be started on Escitalopram 10 mg once daily. -If patient has difficult with sleep/anxiety may consider adding Melatonin to her night time medications 4. Pneumomediastinum -Patient had new mediastinal and CT imaging, which was felt to be new. This was evaluated with an esophagram which was essentially normal. His weight at her pneumomediastinum is likely secondary to her pulmonary fibrosis. Currently stable 5. Hypertension -Currently controlled. Continue home medications 6. Coronary artery disease with history of non-ST elevated myocardial infarction -Continue home medications DISPOSITION: Patient is planned to be discharged to rehabilitation at [facility] on Sunday. I saw and evaluated the patient. I agree with the findings and plan of care as documented in the above note VS, I&O, 24H, Fishbone Vital Signs/I&O Vital Signs Date Time Temp Pulse Resp B/P (MAP) Pulse Ox O2 Delivery O2 Flow Rate FiO2 07/19/19 09:00 3.0 07/19/19 08:15 130/85 07/19/19 06:10 97.8 88 20 91 07/18/19 23:05 Nasal Cannula I&O- Last 24 Hours up to 6 AM 07/19/19 05:59 Intake Total 600 ml Output Total 150 ml Balance 450 ml Laboratory Data 24H LABS Laboratory Tests 2 07/19/19 06:45: Nucleated Red Blood Cells % (auto) 0.0, Anion Gap 4L, Glomerular Filtration Rate > 60.0, Blood Urea Nitrogen 35H, Creatinine 0.94, Sodium Level 140, Potassium Level 4.0, Chloride Level 100, Carbon Dioxide Level 36H, Calcium Level 9.5 CBC/BMP Laboratory Tests 07/19/19 06:45 Red Blood Count 4.22, Mean Corpuscular Volume 97.6 H, Mean Corpuscular Hemoglobi n 30.8, Mean Corpuscular Hemoglobin Concent 31.6 L, Red Cell Distribution Width 15.1 H, Calcium Level 9.5 Microbiology Microbiology 07/12/19 Blood Culture - Final, Complete NO GROWTH AFTER 5 DAYS 07/11/19 Blood Culture - Final, Complete NO GROWTH AFTER 5 DAYS CHINTAN KULKARNI DO Jul 19, 2019 10:00 MARCIAL ANGEL MD Jul 20, 2019 11:56
[2019-07-19] MEDS: ESCITALOPRAM OXALATE 10 MG TAB (LEXAPRO) PO SCH (11:33)
[2019-07-19 14:00] VITALS: BP 115/71
[2019-07-19] MEDS: ACETAMINOPHEN 650MG ER TAB (TYLENOL ARTHRITIS) PO PRN (17:04)
[2019-07-19] MEDS: PRAVASTATIN 20 MG TAB PO SCH (20:57)
[2019-07-19 22:00] VITALS: BP 118/73
[2019-07-20 06:00] VITALS: BP 125/65
[2019-07-20] MEDS: PANTOPRAZOLE 40MG TAB (PROTONIX) PO SCH (08:32)
[2019-07-20] MEDS: POTASSIUM CHLORIDE 10 MEQ SR TABLET PO SCH ×3 (08:32→20:52)
[2019-07-20] MEDS: predniSONE 10 MG TAB PO SCH (08:32)
[2019-07-20] MEDS: CLOPIDOGREL 75 MG TAB PO SCH (08:32)
[2019-07-20] MEDS: FUROSEMIDE 40 MG TAB PO SCH (08:32)
[2019-07-20] MEDS: ESCITALOPRAM OXALATE 10 MG TAB (LEXAPRO) PO SCH (08:32)
[2019-07-20] MEDS: CHLORHEXIDINE GLUCONATE 0.12 % 15ML UDC (PERIDEX ORAL RINSE) MT SCH ×2 (08:32→20:52)
[2019-07-20] MEDS: ASPIRIN 81 MG ENTERIC TAB PO SCH (08:32)
[2019-07-20] MEDS: FLUTICASONE PROP 0.05% NASAL SPRAY 16 GM (FLONASE) NARES SCH (08:32)
[2019-07-20] MEDS: ENOXAPARIN 40 MG/0.4 ML SYRINGE (J1650) SC SCH (08:33)
[2019-07-20] MEDS: LEVOTHYROXINE 50MCG TABLET (0.05MG) PO SCH (08:33)
--- NOTE | 2019-07-20 08:33 | IPNPDOC ---
Date Seen The patient was seen on 07/20/19. Progress Note SUBJECTIVE: Patient reports feeling better today she tells me she slept well. She tells me that she feels less anxious this morning. He tells me that her breathing is fine and is getting back to her normal. She denies any chest pressure chest pain nausea vomiting or diarrhea. OBJECTIVE PHYSICAL EXAMINATION: VITAL SIGNS: Please see below. GENERAL: Patient is awake, alert and oriented. does not appear to be in acute distress, lying flat in bed comfortably and speaking in complete sentences HEENT: Atraumatic, normocephalic. Eyes are nonicteric. Trachea is midline. Mucous membranes are pink and moist.Nasal cannula in place no elevation and CVP CARDIOVASCULAR:. Normal S1, S2, regular rate and rhythm no additional heart sounds appreciated RESPIRATORY:. Fine diffuse rales bilaterally. No accessory muscle use good air movement this morning ABDOMINAL: Soft, nondistended, nontender to palpation in all 4 quadrants. No rebound tenderness or guarding. EXTREMITIES: No edema, 2+ posterior tibial pulses 2+ radial pulses bilaterally. NEUROLOGICAL:. No focal neurological deficits PSYCHOLOGICAL: Mood and affect appear appropriate LABORATORY DATA, IMAGING STUDIES, MICROBIOLOGY: Please see below. DVT prophylaxis ordered?: Lovenox ASSESSMENT AND PLAN: Patient is an 78-year-old female with idiopathic pulmonary fibrosis PROBLEMS: 1 acute on chronic hypoxic respiratory failure: Pulmonary critical care greatly appreciated she is gradually returning her baseline suspicion for infectious etiology is much lower she's been on steroids for possible IPF exacerbation. She did have some small pneumoperitoneum likely secondary to cough and pulmonary fibrosis. Workup has otherwise been negative. Respiratory status is improving her baseline she still has some fear of shortness of breath. I think she'll benefit from pulmonary rehabilitation and encourage her to up and ambulate as much as possible and be out of bed for meals. The plan is for potential disposition to rehabilitation as early as tomorrow. We'll continue a steroid taper. Continue with Ofev and Xopenex. I encouraged her to up in a boot as much as possible be out of bed for meals 2 dysphagia: Diet as per speech therapy and likely an element of reflux not a good candidate for EGD at this time secondary to her recent end STEMI and hypoxic respiratory failure could consider outpatient follow-up with GI should her symptoms persist. She has hiatal hernia but otherwise no obvious etiologies. Continue with dementia 3. Generalized Anxiety: Likely related to her chronic hypoxic respiratory failure and chronic dyspnea. Again with acute benefit from pulmonary rehabilitation I did recommend that she not let her anxiety or fear of shortness of breath limit her and that she certainly has renal respiratory disease to limit her. She is started on SSRI she was informed likely take several weeks before she madea significant benefit from this medication. 4. Hypertension: Currently controlled. Continue home medications. She is on Lasix she appears to be fairly euvolemic at this time. Continue with losartan as well as hydralazine 5. Coronary artery disease with history of non-ST elevated myocardial infarction:Continue aspirin Plavix and statin she is not on a beta kandace likely secondary to her significant lung disease 6. Iron deficiency: She is not currently anemic continue supplementation 7. DVT prophylaxis: She is on Lovenox DISPOSITION: Patient is planned to be discharged to rehabilitation at [place] tomorrow VS, I&O, 24H, Fishbone Vital Signs/I&O Vital Signs Date Time Temp Pulse Resp B/P (MAP) Pulse Ox O2 Delivery O2 Flow Rate FiO2 07/20/19 06:00 98.4 76 18 125/65 (85) 99 3.0 07/18/19 23:05 Nasal Cannula I&O- Last 24 Hours up to 6 AM 07/20/19 06:00 Intake Total 1140 ml Balance 1140 ml Laboratory Data Microbiology Microbiology 07/12/19 Blood Culture - Final, Complete NO GROWTH AFTER 5 DAYS 07/11/19 Blood Culture - Final, Complete NO GROWTH AFTER 5 DAYS MARCIAL ANGEL MD Jul 20, 2019 08:33
[2019-07-20] MEDS: OFEV 100 MG PO SCH ×2 (08:34→16:52)
[2019-07-20] MEDS: LOSARTAN 50 MG TAB PO SCH (08:34)
[2019-07-20] MEDS: **hydrALAZINE HCL** 25 MG TAB PO SCH ×2 (08:34→20:52)
[2019-07-20] MEDS: ACETAMINOPHEN 650MG ER TAB (TYLENOL ARTHRITIS) PO PRN ×2 (12:46→20:53)
[2019-07-20 13:33] VITALS: BP 103/63
[2019-07-20] MEDS: PRAVASTATIN 20 MG TAB PO SCH (20:53)
[2019-07-20 22:00] VITALS: BP 141/79
[2019-07-21 06:00] VITALS: BP 146/84
[2019-07-21] MEDS ORDERED: LEVOTHYROXINE 50MCG TABLET (0.05MG) PO SCH (06:00)
[2019-07-21] MEDS: FLUTICASONE PROP 0.05% NASAL SPRAY 16 GM (FLONASE) NARES SCH (08:21)
[2019-07-21] MEDS: ESCITALOPRAM OXALATE 10 MG TAB (LEXAPRO) PO SCH (08:22)
[2019-07-21] MEDS: FUROSEMIDE 40 MG TAB PO SCH (08:22)
[2019-07-21] MEDS: CLOPIDOGREL 75 MG TAB PO SCH (08:22)
[2019-07-21] MEDS: POTASSIUM CHLORIDE 10 MEQ SR TABLET PO SCH (08:22)
[2019-07-21] MEDS: ASPIRIN 81 MG ENTERIC TAB PO SCH (08:22)
[2019-07-21 08:23] VITALS: BP 146/84
[2019-07-21] MEDS: PANTOPRAZOLE 40MG TAB (PROTONIX) PO SCH (08:23)
[2019-07-21] MEDS: OFEV 100 MG PO SCH (08:23)
[2019-07-21] MEDS: LOSARTAN 50 MG TAB PO SCH (08:23)
[2019-07-21] MEDS: predniSONE 10 MG TAB PO SCH (08:23)
[2019-07-21] MEDS: ENOXAPARIN 40 MG/0.4 ML SYRINGE (J1650) SC SCH (08:23)
[2019-07-21] MEDS: **hydrALAZINE HCL** 25 MG TAB PO SCH (08:23)
[2019-07-21] MEDS: CHLORHEXIDINE GLUCONATE 0.12 % 15ML UDC (PERIDEX ORAL RINSE) MT SCH (08:24)
--- NOTE | 2019-07-21 08:25 | ECGEPIP ---
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
[2019-07-21] MEDS ORDERED: PRED10TA2 PO (10:20)
[2019-07-21] MEDS ORDERED: LEVAINH INH (10:20)
[2019-07-21] MEDS ORDERED: OFEV1CAP PO (10:20)
[2019-07-21] MEDS ORDERED: PANT40TA3 PO (10:20)
[2019-07-21] MEDS ORDERED: ESCI10TA2 PO (10:20)
[2019-07-21] MEDS: ACETAMINOPHEN 650MG ER TAB (TYLENOL ARTHRITIS) PO PRN (11:03)
--- NOTE | 2019-07-21 16:18 | DS.PDOC ---
Discharge Summary General Date of Admission Jul 11, 2019 at 22:01 Date of Discharge 07/21/19 Attending Physician: MARCIAL ANGEL MD Specialist/Consultants Involve: SUNDAY HARDEN MD Specialist/Consultants Involve Leonidas Acuna MD Gastroenterology Discharge Summary PROCEDURES PERFORMED DURING STAY: [None]. ADMITTING DIAGNOSES: 1. Dyspnea 2/2 lower lobe pneumonia vs pulmonary fibrosis 2. Dysphagia 3. Chronic grade 1 diastolic dysfunction 4. Coronary artery disease 5. Hypothyroidism 6., Osteoarthritis DISCHARGE DIAGNOSES: 1. Dyspnea 2/2 lower lobe pneumonia vs pulmonary fibrosis 2. Dysphagia 3. Chronic grade 1 diastolic dysfunction 4. Coronary artery disease 5. Hypothyroidism 6. Osteoarthritis COMPLICATIONS/CHIEF COMPLAINT: Dyspnea. HISTORY OF PRESENT ILLNESS: Patient is an 78-year-old female who presented to the [facility] emergency department with complaint of shortness of breath and anxiety over the past few days as well as weakness over the past 1-2 weeks and decreasing appetite and difficulty tolerating oral intake. She has a past medical history significant for hypertension, coronary artery disease, hyperlipidemia, chronic kidney disease, idiopathic pulmonary fibrosis, osteoarthritis and hypothyroidism. Patient stated that she is chronically on 4 L of oxygen while at rest and will increase her oxygen to 8 L with exertion. She denied any chest pain. She stated that she has a chronic cough and denies any increase in her sputum or frequency of her cough. She denies any episodes of vomiting or nausea. However, did complain of some midsternal discomfort as well as feeling of difficulty while swallowing foods. Patient noted that previously she had a feeling of weakness and dizziness and was transferred to [facility] for evaluation where she was admitted for a non-ST elevated myocardial infarction. At the time is was felt to be due to decompensated heart failure as well as a possible idiopathic pulmonary fibrosis exacerbation. On that admission, the patient was diuresed and ultimately discharged. Patient was readmitted to [facility] in early June due to desaturation an d shortness of breath. This was felt to be due to acute exacerbation of her idiopathic pulmonary fibrosis secondary to a bacterial vs viral upper respiratory tract infection/pneumonia. She had been started on antibiotics and steroids as well as diuresis for her chronic heart failure. She was discharged on July 01 however, she subsequently reported worsening of her symptoms inc luding weakness and decreased appetite, difficulty swallowing, and midsternal discomfort. On presentation, the ER, patient was vitally stable. She received a chest x-ray which demonstrated chronic diffuse interstitial fibrotic change moderate to moderately severe with a lower level inflation but allowing for that was still appearance of increased parietal densities at the left heart border suggesting some subsegmental atelectasis or infiltrate developed since her previous study on 06/26/2019. Initially, the patient received a chest CT which demonstrated diffuse interstitial fibrosis interval improvement of groundglass opacity since the previous exam and mild pneumomediastinum by radiology. Patient was subsequently admitted to hospital service for further evaluation and management of her dyspnea and dysphagia. On admission, the patient was treated for possible idiopathic point fibrosis exacerbation secondary to a bacterial or viral infection. The patient received Levaquin. Patient was evaluated by pulmonary medicine was felt the patient likely did not have a bacterial infection and had an exacerbation of her idiopathic pulmonary fibrosis. The patient was continued on her Ofev and placed on a steroid taper. Regarding her diastolic dysfunction, the patient was c ontinued on her IV Lasix. The patient continued to show improvement in her respiratory status. Patient did have a pneumomediastinum identified on her chest CT, which was a new finding. Due to her dysphasia and new finding of a pneumomediastinum, the patient was evaluated by gastroenterology. A upper GI barium swallow was ordered to assess the patient's dysphasia as well as pneumome diastinum. The patient's barium swallow demonstrated laryngeal penetration tertiary waves but no extraluminal contrast demonstrated. There was a moderate size hiatal hernia with gastroesophageal reflux demonstrated above level of the servando. The results were reviewed by the rural mail carrier who suggested the patient continue with a proton pump inhibitor, continue a soft liquid diet. Patient was additionally followed by speech and swallow who recommended continued pured solids than liquids and to provide ensure due to the patient's weight loss. Patient continued to show improvement, however, did have some anxiety which appears to be related to intermittent shortness of breath. The patient was started on Lexapro 10 mg daily for management of her generalized anxiety. Patient continued to show improvement and was found fit for transfer to [facility]. DISCHARGE MEDICATIONS: Please see below. ALLERGIES: Please see below. PHYSICAL EXAMINATION ON DISCHARGE: VITAL SIGNS: Please see below. GENERAL: Awake Alert, oriented, appears in no acute distress, lying comfortably in bed eating breakfast HEENT: Atraumatic, normocephalic. Eyes nonicteric. Trachea is midline. Mucous membranes are pink and moist. nasal cannula is in place NECK:. No palpable cervical, axillary or supraclavicular lymphadenopathy CARDIOVASCULAR EXAMINATION: Normal 1, S2, regular rate and rhythm. No clicks, rubs or murmurs RESPIRATORY EXAMINATION: Velcro-like rales bilaterally. No accessory muscle use. Poor overall respiratory effort ABDOMINAL EXAMINATION:. Soft, nondistended, nontender to palpation in all 4 quadrants. No rebound tenderness or guarding EXTREMITIES:. No edema. Full and equal pulses in bilateral upper and lower extremities SKIN:. No rashes or areas of erythema NEUROLOGICAL EXAMINATION:. No focal neurological deficits PSYCHIATRIC EXAMINATION:. Mood and affect appear appropriate LABORATORY DATA: Please see below. IMAGING: Comparison: 06/26/2019, 05/08/2019. Clinical history: Dyspnea and cough. Findings: The lungs are more hypoinflated on the current study than the previous two examinations. There is underlying diffuse interstitial lung changes. There is heavier markings in the left base adjacent to the left heart border that could be atelectasis or infiltrate. Extensive diffuse fibrotic changes with some peribronchial thickening noted. No gross effusion. Heart size unchanged. A bandar and airway unchanged. Impression: 1. Chronic diffuse interstitial fibrotic change moderate to moderately severe with a lower level of inflation but allowing for that there is still appearance of increased parenchymal density at the left heart border suggesting some subsegmental atelectasis or infiltrate developed since the previous study 06/26/2019.2. No gross cardiomegaly, pleural effusion or diallo edema. Electronically Signed by Shailesh Beltran MD 07/11/2019 08:24 P PROCEDURE INFORMATION: Exam: CT Chest With Contrast Exam date and time: 07/11/2019 10:32 PM Clinical history: 78 years old, female; Dyspnea; Additional info: Dyspnea / f/u on left sided lesion TECHNIQUE: Imaging protocol: Computed tomography of the chest with intravenous contrast. 3D rendering: MIP reconstructed images were created and reviewed. Radiation optimization: All CT scans at this facility use at least one of these dose optimization techniques: automated exposure control; mA and/or kV adjustment per patient size (includes targeted exams where dose is matched to clinical indication); or iterative reconstruction. Contrast material: ISOVUE 370; Contrast volume: 100 ml; Contrast route: IV; COMPARISON: CT ANGIO CHEST 06/06/2019 1:43 AM FINDINGS: Lungs: Diffuse interstitial fibrosis with honeycombing and bronchiectasis are again demonstrated. Groundglass opacities previously seen in the lungs have improved but have not completely resolved. No new air space infiltrates are seen. Pleural space: No pneumothorax or pleural effusion is seen. Heart: Mild coronary artery atherosclerotic disease is present. Mild cardiomegaly. Mediastinum: There is a mild pneumomediastinum of uncertain etiology. There is a moderate-sized hiatal hernia. Pulmonary arteries: Main pulmonary arteries are mildly enlarged, similar to the prior exam. Aorta: Unremarkable. No aortic aneurysm. Lymph nodes: Unremarkable. No enlarged lymph nodes. Bones/joints: Skeletal degenerative changes are noted. Soft tissues: Unremarkable. IMPRESSION: 1. Diffuse interstitial fibrosis. 2. Interval improvement of groundglass pulmonary opacities since the previous exam. Some residual opacities are present. No new pulmonary abnormalities are seen. 3. Mild pneumomediastinum of uncertain etiology. No pneumothorax or pleural effusion. 4. Stable appearance of other chronic findings as above. Electronically signed by: Philip Briscoe On 07/11/2019 23:43:18 PM SINGLE CONTRAST ESOPHAGRAM AND UPPER GI The procedure was performed under the direct supervision of Dr. Salinas. The images were reviewed with Dr. Salinas. A single view PA chest x-ray is submitted as a galley stripper film. There is no change compared to a previous chest x-ray performed on 07/11/2019. A 50 50 solution of Isovue 300 and water was instilled in the erect position as well as in the right and left lateral recumbent positions. During the oral and pharyngeal stages of deglutition there is laryngeal penetration. There are esophageal transport there are tertiary waves demonstrated. The esophagus is grossly normal. There is no evidence of esophagitis stricture mucosal ring. There is a moderate-sized hiatal hernia. There is gastroesophageal reflux demonstrated to above the level of the servando. The stomach is grossly normal. The rugal folds are smooth and regular. There is no evidence of gastritis neoplasm or ulcer disease. The duodenum is grossly normal. The mucosal folds are smooth and regular. There is no evidence of duodenitis pancreatitis peptic ulcer disease or neoplasm. The visualized portion of the proximal small bowel appears normal in course and caliber. Impression: 1. Laryngeal penetration. 2. Tertiary waves. No extraluminal contrast seen. 3. There is a moderate-sized hiatal hernia with gastroesophageal reflux demonstrated to above the level of the servando. 0.7 minutes of fluoroscopy time was utilized for this procedure. The Electronically Signed by DION Garcia 07/16/2019 03:39 P Electronically Signed by Adam Salinas MD 07/16/2019 03:56 P Portable chest x-ray: Single view. History: Pneumomediastinum Comparison chest x-ray: July 11, 2019. Findings: There is a fairly large hiatal hernia behind the heart. There are clips in right upper quadrant of the abdomen. There is a diffuse interstitial fibrosis pattern again noted in the lung plascencia. There is a small amount of air along the right lateral margin of the trachea which may be residual pneumomediastinum. There is no evidence of pneumothorax. Electronically Signed by Irving Monte MD 07/17/2019 02:05 P PROGNOSIS: Fair ACTIVITY: [As tolerated]. DIET: Pured solids and thin liquids, ensure DISCHARGE PLAN: Patient is to be discharged to [facility] for [facility]. She is to continue the end of her steroid taper, which is one 10 mg tablet tomorrow. She is to continue her Ofev with increased dose to 150 mg twice a day. Patient is to increase her omeprazole to 40 mg by mouth daily. Patient is to continue Lexapro 10 mg by mouth daily. Additionally, patient was given Xopenex HFA every 4 hours for shortness of breath. Patient was instructed to follow-up with her assistance specialist. Further management of her idiopathic pulmonary fibrosis. DISCHARGE CONDITION: [Stable]. TIME SPENT ON DISCHARGE: Greater than 35 minutes. Vital Signs/I&Os Vital Signs Date Time Temp Pulse Resp B/P (MAP) Pulse Ox O2 Delivery O2 Flow Rate FiO2 07/21/19 10:24 3.0 07/21/19 08:23 146/84 07/21/19 06:00 96.8 71 18 100 07/18/19 23:05 Nasal Cannula I&O- Last 24 Hours up to 6 AM 07/21/19 06:00 Intake Total 600 ml Balance 600 ml Laboratory Data Labs 24H Laboratory Tests 2 07/20/19 17:17: Troponin I 0.04 07/20/19 22:52: Troponin I 0.04 Microbiology Microbiology 07/12/19 Blood Culture - Final, Complete NO GROWTH AFTER 5 DAYS 07/11/19 Blood Culture - Final, Complete NO GROWTH AFTER 5 DAYS Discharge Medications Scheduled Acetylcysteine (Acetylcysteine) 200 Mg/1 Ml Vial, 400 MG INH BID, (Reported) MIX WITH VIAL OF ALBUTEROL Albuterol Sulf (Albuterol Sulfate) 2.5 Mg/3 Ml Vial.neb, 1 VIAL INH BID, (Reported) TO BE MIXED WITH ACETYLCYSTEINE Aspirin (Aspir 81) 81 Mg Tablet.dr, 81 MG PO DAILY, (Reported) Clopidogrel Bisulfate (Clopidogrel) 75 Mg Tablet, 75 MG PO DAILY, (Reported) Escitalopram Oxalate (Escitalopram Oxalate) 10 Mg Tablet, 10 MG PO DAILY Ferrous Sulfate (Ferrous Sulfate) 325 Mg Tablet, 325 MG PO 2XWK, (Reported) SUNDAY AND SUNDAY Fluticasone Propionate (Flonase Allergy Relief) 9.9 Ml [place].susp, 2 SPRAY NARES DAILY, (Reported) Furosemide (Furosemide) 40 Mg Tablet, 40 MG PO DAILY, (Reported) Hydralazine HCl (Hydralazine HCl) 25 Mg Tablet, 25 MG PO BID, (Reported) Levothyroxine Sodium (Synthroid) 50 Mcg Tablet, 50 MCG PO DAILY, (Reported) Losartan Potassium (Losartan Potassium) 50 Mg Tablet, 50 MG PO DAILY, (Reported) Nintedanib Esylate (Ofev) 100 Mg Capsule, 150 MG PO BID SECOND DOSE AT DINNERTIME Pantoprazole Sodium (Pantoprazole Sodium) 40 Mg Tablet.dr, 40 MG PO DAILY Potassium Chloride (Potassium Chloride) 20 Meq Tab.er.prt, 20 MEQ PO TID, (Reported) Pravastatin Sodium (Pravastatin Sodium) 40 Mg Tablet, 40 MG PO QHS, (Reported) Prednisone (Prednisone) 10 Mg Tablet, 10 MG PO DAILY Ubidecarenone/Vit E Acet (Co Q-10 100 mg Softgel) 1 Each Capsule, 100 MG PO DAILY, (Reported) Scheduled PRN Acetaminophen (Tylenol Extra Strength) 500 Mg Tablet, 1,000 MG PO Q8H PRN for PAIN, (Reported) Levalbuterol Hydrochloride (Xopenex Hfa) 15 Gm Hfa.aer.ad, 2 PUFF INH Q4HP PRN for SHORTNESS OF BREATH Loperamide HCl (Loperamide) 2 Mg Capsule, 4 MG PO Q6H PRN for DIARRHEA, (Reported) Allergies Coded Allergies: Penicillins (Verified Allergy, Severe, PASSED OUT/CONVULSIONS, 05/06/19) Sulfa (Sulfonamide Antibiotics) (Verified Allergy, Intermediate, HIVES, 05/06/19) CHINTAN KULKARNI DO Jul 21, 2019 16:18
== END 2019-07-21 11:28 | DRG 196 ==
LOC: M ED 16:36 → M ED INP 22:01 → M MS5PR 07-12 01:15
PROVIDERS: ADMIT Internal Medicine; ATTEND Internal Medicine
DX: J84.10 Pulmonary fibrosis, unspecified (principal); J18.9 Pneumonia, unspecified organism; J96.11 Chronic respiratory failure with hypoxia; I13.0 Hypertensive heart and chronic kidney disease with heart failure and stage 1 through stage 4 chronic kidney disease, or unspecified chronic kidney disease; J98.2 Interstitial emphysema; I25.10 Atherosclerotic heart disease of native coronary artery without angina pectoris; E03.9 Hypothyroidism, unspecified; M19.90 Unspecified osteoarthritis, unspecified site; R13.10 Dysphagia, unspecified; E78.5 Hyperlipidemia, unspecified; K44.9 Diaphragmatic hernia without obstruction or gangrene; K21.9 Gastro-esophageal reflux disease without esophagitis; Z79.899 Other long term (current) drug therapy; Z79.82 Long term (current) use of aspirin; Z88.0 Allergy status to penicillin; Z88.2 Allergy status to sulfonamides; I27.20 Pulmonary hypertension, unspecified; N18.2 Chronic kidney disease, stage 2 (mild); Z96.651 Presence of right artificial knee joint; Z87.891 Personal history of nicotine dependence; I50.9 Heart failure, unspecified; Z66 Do not resuscitate; E11.9 Type 2 diabetes mellitus without complications; I25.2 Old myocardial infarction; F41.1 Generalized anxiety disorder